=== PATIENT | female | born 1970 | race Caucasian/White ===

== ENCOUNTER 2017-06-22 23:20 | Inpatient (IN) | payer OTHER ==
[2017-06-22 23:37] VITALS: BMI 39.9
[2017-06-23] MEDS ORDERED: SODIUM CHLORIDE 1,000 ML IV SCH (00:30)
--- NOTE | 2017-06-23 00:33 | PDOC ---
History of Present Illness - General Chief Complaint: Headache Stated Complaint: HEADACHE, LT SIDE NUMBNESS Time Seen by Provider: 06/22/17 23:50 History Source: Patient, Family Exam Limitations: No Limitations - History of Present Illness Initial Comments: 06/23/17 00:22 The patient is a 46F with a PMH of HTN and R garcia's palsy who presents to the ED with complaints of a AUGUSTE. The patient is present with her daughter who is translating. The patient states that she's had a headache since 4 pm today. The headache is located in her occiput and radiates towards her frontal portion of her head. The patient also states that she felt like her mouth was shaking and this pain was associated w/ slurred speech. She also states that her R arm hurts. She took an advil and this usually helps her headaches but it did not this time. She rates it a 10/10. She also complains of dizziness when standing. LMP: on her period now Allergies: none Social: does not smoke, drink, or use any recreational drugs. NIH Stroke Scale - Last Known Well Date/Time & Onset Date Last Known Well: 06/23/17 Time Last Known Well: 16:00 - Initial Evaluation Level of consciousness: Alert Ask patient the month and their age: Answers both correctly Ask patient to open & close eyes; make fist and let go: Obeys both correctly Best gaze (horizontal eye movement): Normal Visual field testing: No visual field loss Facial paresis (Show teeth/raise eyebrows/close eyes tight): Normal symmetrical movement Motor Function: Left Arm: Normal Motor Function: Right Arm: Normal (extends arm 90 (or 45) degrees for 10 seconds without drift Motor Function: Left Leg: Normal (extends leg 30 degrees for 5 seconds without drift) Motor Function: Right Leg: Normal (extends leg 30 degrees for 5 seconds without drift) Limb Ataxia: No ataxia Sensory(Use pinprick test arms,legs,trunk,face/side to side): Mild to moderate decrease in sensation Best language (Describe picture, name items, read sentences): No Aphasia Dysarthria (read several words): Normal articulation Extinction and Inattention: No abnormality - Total Score NIH Stroke Scale Score: 1 Past History - Past Medical History Allergies/Adverse Reactions: Allergies Allergy/AdvReac Type Severity Reaction Status Date / Time No Known Allergies Allergy Verified 06/22/17 23:33 Home Medications: Ambulatory Orders Amlodipine Besylate [Norvasc -] 5 mg PO DAILY 06/27/16 Acetaminophen/Caffeine [Excedrin Tension Headache Cplt] 1 each PO Q6H #30 tablet 06/28/16 Anemia: No Asthma: No Cancer: No Cardiac Disorders: No CVA: No COPD: No CHF: No Dementia: No Diabetes: No GI Disorders: No Disorders: No HTN: Yes Hypercholesterolemia: Yes Liver Disease: No Seizures: No - Immunization History Td Vaccination: Yes Immunization Up to Date: Yes - Psycho/Social/Smoking Cessation Hx Anxiety: No Suicidal Ideation: No Smoking Status: No Smoking History: Never smoked Years of Tobacco Use: 0 Have you smoked in the past 12 months: No Number of Cigarettes Smoked Daily: 0 Cigars Per Day: 0 Information on smoking cessation initiated: No Hx Alcohol Use: No Drug/Substance Use Hx: No Substance Use Type: None Hx Substance Use Treatment: No Review of Systems - Review of Systems Able to Perform ROS?: Yes Is the patient limited Bolivian proficient: Yes Constitutional: No: Chills, Fever HEENTM: Yes: Blurred Vision Respiratory: No: Shortness of Breath Cardiac (ROS): No: Chest Pain ABD/GI: No: Nausea, Vomiting Neurological: Yes: Headache, Tingling (in hands). No: Numbness, Weakness *Physical Exam - Vital Signs Last Vital Signs Temp Pulse Resp BP Pulse Ox 98.3 F 74 20 121/61 95 06/22/17 23:33 06/22/17 23:33 06/22/17 23:33 06/22/17 23:33 06/22/17 23:33 - Physical Exam General Appearance: Yes: Nourished, Appropriately Dressed. No: Mild Distress HEENT: positive: REBECCA Respiratory/Chest: positive: Lungs Clear, Normal Breath Sounds. negative: Chest Tender, Respiratory Distress, Accessory Muscle Use, Crackles, Rales, Rhonchi, Stridor Cardiovascular: positive: Regular Rhythm, Regular Rate, S1, S2. negative: Tachycardia, Diastolic Murmur, Systolic Murmur Gastrointestinal/Abdominal: positive: Flat, Soft. negative: Tender, Protuberent , Guarding, Rebound, Tenderness Musculoskeletal: positive: Other (Tenderness over c spine and t spine. No bony step offs or bony abnormalities). negative: CVA Tenderness, CVA Tenderness (R) , CVA Tenderness (L) Integumentary: positive: Dry, Warm. negative: Clammy, Swelling Neurologic: positive: huc II-XII NML intact, Fully Oriented, Alert, Normal Mood/ Affect, Normal Response, Motor Strength 5/5, Sensory Deficit (R sided in upper and lower extremities). negative: Abnormal Cranial NS, Responsive Heart Score/ECG Review - ECG Impressions Normal ECG: Yes ED Treatment Course - LABORATORY CBC & Chemistry Diagram: 06/23/17 00:25 06/23/17 00:25 - RADIOLOGY Radiology Studies Ordered: Category Date Time Status HEAD CT (STROKE) [CT] Stat CT Scan 06/23/17 00:17 Ordered Medical Decision Making - Medical Decision Making 06/23/17 00:37 The patient is a 46F with a PMH of R garcia's palsy and HTN who presents to the ED with sudden onset headache. With the patient's story of slurred speech, I am concerned for a CVA and/or TIA. She had no deficits from her garcia's on my examination. The tenderness to palpation over her c and t-spine is likely musculoskeletal. I have ordered the cva/tia set. 06/23/17 03:28 CT read as negative. 06/23/17 03:30 Labs WNL. 06/23/17 03:34 Paged hospitalist. Awaiting call back. Will admit for TIA and neuro consult. 06/23/17 04:52 Patient signed out to hospitalist team. Admitted to hospitalist. *DC/Admit/Observation/Transfer Diagnosis at time of Disposition: Transient cerebral ischemia Qualifiers: Transient cerebral ischemia type: unspecified Qualified Code(s): G45.9 - Transient cerebral ischemic attack, unspecified - Discharge Dispostion Condition at time of disposition: Stable Admit: Yes - Attestations Physician Attestion: 06/23/17 05:01 I, Dr. Garrett Casas, attest that this document has been prepared under my direction and personally reviewed by me in its entirety. I further attest, that it accurately reflects all work, treatment, procedures and medical decision -making performed by me.
[2017-06-23 00:36] LABS: BASOPHIL 1.3 % (0-2.0); EOSINOPHIL 2.7 % (0-4.5); MCH 28.6 pg (25.7-33.7); MCHC 34.1 g/dl (32.0-36.0); MEAN PLT VOLUME 8.5 fl (7.5-11.1); NEUTROPHILS 55.5 % (42.8-82.8); PLATELET COUNT 261 K/MM3 (134-434); RDW 13.5 % (11.6-15.6); WHITE BLOOD COUNT 7.7 K/mm3 (4.0-10.0)
[2017-06-23 00:43] LABS: URINE APPEARANCE SLCLOUDY; URINE BILIRUBIN NEGATIVE (NEGATIVE); URINE BLOOD 3+ (NEGATIVE); URINE COLOR YELLOW; URINE GLUCOSE (UA) NEGATIVE (NEGATIVE); URINE KETONE NEGATIVE (NEGATIVE); URINE LEUK ESTERASE TRACE (NEGATIVE); URINE NITRITE NEGATIVE (NEGATIVE); URINE UROBILINOGEN NEGATIVE mg/dL (0.2-1.0)
[2017-06-23 00:45] LABS: URINE PROTEIN 2+ (NEGATIVE)
[2017-06-23 00:50] LABS: INR 1.03 (0.82-1.09); PROTHROMBIN TIME (PATIENT) 11.3 SEC (9.98-11.88)
[2017-06-23 00:50] LABS: URINE MUCUS MODERATE; URINE RBC 2534 /hpf (0-3); URINE WBC 17 /hpf (3-5)
[2017-06-23 00:59] LABS: ALBUMIN 3.4 g/dl (3.4-5.0); ANION GAP 9 (8-16); BILIRUBIN,TOTAL 0.4 mg/dL (0.2-1.0); CALCIUM 8.8 mg/dL (8.5-10.1); CHOLESTEROL 213 mg/dL (50-200); CO2 27 mmol/L (21-32); CREATININE 0.7 mg/dL (0.55-1.02); GLUCOSE,RANDOM 123 mg/dL (74-106); SGOT/AST 30 U/L (15-37); SGPT/ALT 45 U/L (12-78)
[2017-06-23 01:02] LABS: ALK PHOS 123 U/L (45-117); CPK 87 IU/L (26-192); TROPONIN I < 0.02 ng/ml (0.00-0.05)
[2017-06-23] MEDS ORDERED: ACETAMINOPHEN 1000 MG/100 ML VIAL (NON FORMULARY) IVPB ONE (01:23)
[2017-06-23 03:17] LABS: LDL CHOLESTEROL (ONLY SJRH) 100 mg/dL (5-100)
--- NOTE | 2017-06-23 03:53 | PDOC ---
Attending Attestation - Resident Resident Name: Garrett Casas - ED Attending Attestation I have performed the following: I have examined & evaluated the patient, The case was reviewed & discussed with the resident, I agree w/resident's findings & plan, Exceptions are as noted - HPI HPI: 06/23/17 02:33 46yo F hx HTN and SLE (not on treatment, has not sought care for it) p/w 10/10 sudden onset headache at 7pm yesterday a/w 1 hour of slurred speech and RUE weakness that resolved after 1 hour. HEadache is not as bad as it was when it started but still present, a/w mild photophobia and mild neck stiffness. Has tried tylenol and motrin for the ochoa with no improvement. 06/23/17 05:03 - Physicial Exam PE: 06/23/17 04:51 GENERAL: Awake, alert, and fully oriented, appears uncomfortable HEAD: No signs of trauma EYES: PERRLA, EOMI, sclera anicteric, conjunctiva clear ENT: Auricles normal inspection, hearing grossly normal, nares patent, oropharynx clear without exudates. Moist mucosa NECK: Normal ROM, supple, no lymphadenopathy, JVD, or masses LUNGS: Breath sounds equal, clear to auscultation bilaterally. No wheezes, and no crackles HEART: Regular rate and rhythm, normal S1 and S2, no murmurs, rubs or gallops ABDOMEN: Soft, nontender, normoactive bowel sounds. No guarding, no rebound. No masses EXTREMITIES: Normal range of motion, no edema. No clubbing or cyanosis. No cords, erythema, or tenderness NEUROLOGICAL: Cranial nerves II through XII grossly intact. negative pronator drift, 5/5 strength in all 4 extremities, normal sensation in all 4 extremities , normal speech - no slurring (daughter confirms), normal gait SKIN: Warm, Dry, normal turgor, no rashes or lesions noted. 06/23/17 05:04 - Medical Decision Making 06/23/17 04:50 46yo F hx HTN and SLE (not on treatment, has not sought care for it) p/w 10/10 sudden onset headache at 7pm yesterday a/w 1 hour of slurred speech and RUE weakness that resolved after 1 hour. Headache is not as bad as it was when it started but still present, a/w mild photophobia and mild neck stiffness. Story concerning for TIA vs SAH. CTH thus far negative for acute blood, however pt requires LP. Pt with large body habitus and thus would require LP under IR guidance. Will admit to medicine for further observation and neuro c/s in the AM. -labs -pain control -admit 06/23/17 05:04
--- NOTE | 2017-06-23 06:49 | HP ---
CHIEF COMPLAINT: PCP: HISTORY OF PRESENT ILLNESS: ER course was notable for: (1) (2) (3) Recent Travel: PAST MEDICAL HISTORY: PAST SURGICAL HISTORY: Social History: Smoking: Alcohol: Drugs: Family History: Allergies No Known Allergies Allergy (Verified 06/22/17 23:33) HOME MEDICATIONS: Home Medications Medication Instructions Recorded Amlodipine Besylate [Norvasc -] 5 mg PO DAILY 06/27/16 Acetaminophen/Caffeine [Excedrin 1 each PO Q6H #30 tablet 06/28/16 Tension Headache Cplt] REVIEW OF SYSTEMS CONSTITUTIONAL: Absent: fever, chills, diaphoresis, generalized weakness, malaise, loss of appetite, weight change HEENT: Absent: rhinorrhea, nasal congestion, throat pain, throat swelling, difficulty swallowing, mouth swelling, ear pain, eye pain, visual changes CARDIOVASCULAR: Absent: chest pain, syncope, palpitations, irregular heart rate, lightheadedness , peripheral edema RESPIRATORY: Absent: cough, shortness of breath, dyspnea with exertion, orthopnea, wheezing, stridor, hemoptysis GASTROINTESTINAL: Absent: abdominal pain, abdominal distension, nausea, vomiting, diarrhea, constipation, melena, hematochezia GENITOURINARY: Absent: dysuria, frequency, urgency, hesitancy, hematuria, flank pain, genital pain MUSCULOSKELETAL: Absent: myalgia, arthralgia, joint swelling, back pain, neck pain SKIN: Absent: rash, itching, pallor HEMATOLOGIC/IMMUNOLOGIC: Absent: easy bleeding, easy bruising, lymphadenopathy, frequent infections ENDOCRINE: Absent: unexplained weight gain, unexplained weight loss, heat intolerance, cold intolerance NEUROLOGIC: Absent: headache, focal weakness or paresthesias, dizziness, unsteady gait, seizure, mental status changes, bladder or bowel incontinence PSYCHIATRIC: Absent: anxiety, depression, suicidal or homicidal ideation, hallucinations. PHYSICAL EXAMINATION Vital Signs - 24 hr 06/23/17 06/23/17 05:12 05:30 Temperature 97.5 F L Pulse Rate [ 68 Left Radial] Respiratory 20 Rate Blood Pressure 112/67 [Left Arm] O2 Sat by Pulse 98 98 Oximetry (%) GENERAL: Awake, alert, and fully oriented, in no acute distress. HEAD: Normal with no signs of trauma. EYES: Pupils equal, round and reactive to light, extraocular movements intact, sclera anicteric, conjunctiva clear. No lid lag. EARS, NOSE, THROAT: Ears normal, nares patent, oropharynx clear without exudates. Moist mucous membranes. NECK: Normal range of motion, supple without lymphadenopathy, JVD, or masses. LUNGS: Breath sounds equal, clear to auscultation bilaterally. No wheezes, and no crackles. No accessory muscle use. HEART: Regular rate and rhythm, normal S1 and S2 without murmur, rub or gallop. ABDOMEN: Soft, nontender, not distended, normoactive bowel sounds, no guarding, no rebound, no masses. No hepatomegaly or splenomegaly. MUSCULOSKELETAL: Normal range of motion at all joints. No bony deformities or tenderness. No CVA tenderness. UPPER EXTREMITIES: 2+ pulses, warm, well-perfused. No cyanosis. No clubbing. No peripheral edema. LOWER EXTREMITIES: 2+ pulses, warm, well-perfused. No calf tenderness. No peripheral edema. NEUROLOGICAL: Cranial nerves II-XII intact. Normal speech. Normal gait. PSYCHIATRIC: Cooperative. Good eye contact. Appropriate mood and affect. SKIN: Warm, dry, normal turgor, no rashes or lesions noted, normal capillary refill. ASSESSMENT/PLAN:
--- NOTE | 2017-06-23 06:52 | HP ---
CHIEF COMPLAINT: Headache, slurred speech, right arm numbness PCP: Maryanne Franco HISTORY OF PRESENT ILLNESS: 46 y.o. F with PMH of HTN, Lupus, and R garcia's palsy presenting with right upper extremity numbness, slurred speech and headache with back pain that began at 4 pm. Patient's symptoms began suddenly. Headache was 10/10, midfrontal radiating to occiput, pressure like pain. Patient tried tylenol, motrin, and advil with no relief. Slurred speech resolved within 1 hour. RUE numbness lasted until she was in the ED and then resolved. Patient also has neck/back discomfort and pain. Patient denies any fever, chills, N/V, weakness, neck stiffness, photophobia ER course was notable for: (1) Labs- Abnormal lipid panel (2) UA- 3+ blood (3) Head ct- negative Recent Travel: denies PAST MEDICAL HISTORY: as stated above PAST SURGICAL HISTORY: denies Social History: Smoking: denies Alcohol: denies Drugs: denies Family History: negative Allergies No Known Allergies Allergy (Verified 06/22/17 23:33) HOME MEDICATIONS: Home Medications Medication Instructions Recorded Amlodipine Besylate [Norvasc -] 5 mg PO DAILY 06/27/16 Acetaminophen/Caffeine [Excedrin 1 each PO Q6H #30 tablet 06/28/16 Tension Headache Cplt] REVIEW OF SYSTEMS CONSTITUTIONAL: Absent: fever, chills, diaphoresis, generalized weakness, malaise, loss of appetite, weight change HEENT: Absent: rhinorrhea, nasal congestion, throat pain, throat swelling, difficulty swallowing, mouth swelling, ear pain, eye pain, blurry vision CARDIOVASCULAR: Absent: chest pain, syncope, palpitations, irregular heart rate, lightheadedness , peripheral edema RESPIRATORY: Absent: cough, shortness of breath, dyspnea with exertion, orthopnea, wheezing, stridor, hemoptysis GASTROINTESTINAL: Absent: abdominal pain, abdominal distension, nausea, vomiting, diarrhea, constipation, melena, hematochezia GENITOURINARY: Absent: dysuria, frequency, urgency, hesitancy, hematuria, flank pain, genital pain MUSCULOSKELETAL: Absent: myalgia, arthralgia, joint swelling, back pain, neck pain SKIN: Absent: rash, itching, pallor HEMATOLOGIC/IMMUNOLOGIC: Absent: easy bleeding, easy bruising, lymphadenopathy, frequent infections ENDOCRINE: Absent: unexplained weight gain, unexplained weight loss, heat intolerance, cold intolerance NEUROLOGIC: Absent: headache, focal weakness or paresthesias, dizziness, unsteady gait, seizure, mental status changes, bladder or bowel incontinence PSYCHIATRIC: Absent: anxiety, depression, suicidal or homicidal ideation, hallucinations. PHYSICAL EXAMINATION Vital Signs - 24 hr 06/23/17 06/23/17 05:12 05:30 Temperature 97.5 F L Pulse Rate [ 68 Left Radial] Respiratory 20 Rate Blood Pressure 112/67 [Left Arm] O2 Sat by Pulse 98 98 Oximetry (%) GENERAL: Awake, alert, and fully oriented, in no acute distress. Obese, No slurred speech HEAD: Normal with no signs of trauma. EYES: Pupils equal, round and reactive to light, extraocular movements intact, sclera anicteric, conjunctiva clear. No lid lag. EARS, NOSE, THROAT: Oropharynx clear without exudates. Moist mucous membranes. NECK: Normal range of motion, supple without lymphadenopathy, JVD, or masses. LUNGS: Breath sounds equal, clear to auscultation bilaterally. No wheezes, and no crackles. No accessory muscle use. HEART: Regular rate and rhythm, normal S1 and S2 without murmur, rub or gallop. ABDOMEN: Soft, nontender, not distended, normoactive bowel sounds, no guarding, no rebound, no masses. No hepatomegaly or splenomegaly. MUSCULOSKELETAL: Normal range of motion at all joints. No bony deformities or tenderness. No CVA tenderness. UPPER EXTREMITIES: 2+ pulses, warm, well-perfused. No cyanosis. No clubbing. No peripheral edema. LOWER EXTREMITIES: 2+ pulses, warm, well-perfused. No calf tenderness. No peripheral edema. NEUROLOGICAL: Cranial nerves II-XII intact. 5/5 strength b/l, sensation intact , reflexes 2+ b/l, negative babinski, Normal speech. PSYCHIATRIC: Cooperative. Good eye contact. Appropriate mood and affect. SKIN: Warm, dry, normal turgor, no rashes or lesions noted, normal capillary refill. ekg- NSR Head ct- negative ASSESSMENT/PLAN: 46 y.o. F with PMH of HTN, Lupus, and R garcia's palsy presenting with right upper extremity numbness, slurred speech and headache admitted for TIA vs cervical radiculopathy. #TIA vs Cervical Radiculopathy -Admit to telemetry -Head ct negative -EKG wnl -Aspirin 162mg given -Continue asa 81 mg po daily -TTE pending -Will repeat Head ct in 24 hrs -Cervical X ray pending -Speech/swallow -PT pending -Neurology consulted, Dr. Siddiqi -Tylenol 650 mg po prn q4h for headaches -Neuro checks q4 hours #HTN -Continue home amlodipine 5 mg po daily #Hx of lupus -Not on any medication -Can f/u with pcp outpt #DVT ppx -Heparin 5000 units sq bid Visit type - Emergency Visit Emergency Visit: Yes ED Registration Date: 06/23/17 Care time: The patient presented to the Emergency Department on the above date and was hospitalized for further evaluation of their emergent condition. - New Patient This patient is new to me today: Yes Date on this admission: 06/23/17 - Critical Care Critical Care patient: No
--- NOTE | 2017-06-23 06:57 | PN ---
Teaching Attending Note Name of Resident: Mg Stewart ATTENDING PHYSICIAN STATEMENT I saw and evaluated the patient. I reviewed the chart, data, and imaging. I reviewed the resident's note and discussed the case with the resident. I agree with the resident's findings and plan as documented with modifications below. SUBJECTIVE: 46yo F w/ history of HTN and SLE c/o right upper extremity paresthesias and occipital headache which started 8/5 at about 4 pm. Symptoms started suddenly, not related to trauma. RUE paresthesias lasted for a few hours and resolved spontaneously. Headache decreased in intensity but still present. Pt also c/o some discomfort in neck. No nausea or vomiting, fevers, photophobia, or neck stiffness. Head CT negative for any acute insults. OBJECTIVE: Last Vital Signs Temp Pulse Resp BP Pulse Ox 97.5 F L 68 20 112/67 98 06/23/17 05:30 06/23/17 05:30 06/23/17 05:30 06/23/17 05:30 06/23/17 05:30 General- obese, not in acute distress, speaks in full sentences, aaox3 HEENT- no scleral pallor no sinus tenderness Neck supple, no masses appreciated CV s1+S2+ RRR, no murmurs Chest- CTA b/l Abdomen soft, nt, bs+, obese Skin- no rashes appreciated Neuro no focal motor deficits appreciated, no hyperreflexia appreciated, negative Babinski b/l, CN 3-12 intact Abnormal Lab Results 06/23/17 06/23/17 00:25 00:32 Random Glucose 123 H D Alkaline Phosphatase 123 H D Triglycerides 505 H Cholesterol 213 H HDL Cholesterol 35 L Urine Protein 2+ H Urine Blood 3+ H EKG -normal sinus rhythm Head CT - no acute insults ASSESSMENT AND PLAN: TIA vs cervical radiculopathy. Neuro exam is currently normal and no deficits appreciated. -admit to telemetry -aspirin 182mg stat and daily -neurocheck q4hrs -b/l carotid duplex U/S -transthoracic echo -Repeat head CT in 24 hours -Speech and swallow evaluation -Rehab evaluation -Neurology consult -Xray of cervical spine to evaluate for DJD -tylenol PRN for headache
[2017-06-23] MEDS ORDERED: ASPIRIN 81 MG CHEWABLE TABLETS PO ONE (07:09)
[2017-06-23] MEDS ORDERED: ASPIRIN 81 MG CHEWABLE TABLETS ONE ×2 (07:40→10:29)
--- NOTE | 2017-06-23 10:05 | PN ---
Physical Exam: SUBJECTIVE: Patient seen and examined The patient is a 46 year old female with a significant past medical history of HTN, Lupus, and R garcia's palsy who was admitted to inpatient services after she presented with right upper extremity paresthesias, slurred speech and headache, concerning for TIA/CVA vs cervical radiculopathy. She is currently asymptomatic OBJECTIVE: Vital Signs Period Temp Pulse Resp BP Sys/Alvarado Pulse Ox Last 24 Hr 97.5 F 68 20 112/67 98-98 GENERAL: Awake, alert HEART: S1S2, RRR LUNGS: Coarse breath sounds bilaterally ABDOMEN: Soft, non-distended, normal BS EXTREMITIES: no edema NEURO: Active Medications Generic Name Dose Route Start Last Admin Trade Name Freq PRN Reason Stop Dose Admin Acetaminophen 650 mg 06/23/17 08:52 Tylenol - PO Q4H PRN HEADACHE Amlodipine Besylate 5 mg 06/23/17 10:00 Norvasc - PO DAILY NANETTE Aspirin 81 mg 06/23/17 10:00 Asa - PO DAILY NANETTE Heparin Sodium (Porcine) 5,000 unit 06/23/17 10:00 Heparin - SQ BID NANETTE Sodium Chloride 1,000 mls @ 42 mls/hr 06/23/17 00:30 06/23/17 01:21 Normal Saline - IV 42 mls/hr ASD[facility] Administration ASSESSMENT/PLAN: #NEURO TIA/CVA vs Cervical Radiculopathy Head CT was negative She was not a candidate for TPA Continue Tele Continue asa 81 mg po daily Carotid dopplers noted without significant findings Cervical X ray noted with evidence of OA TTE pending Repeat Head CT (24hr) was ordered Speech/swallow and PT pending Neurology consulted, Dr. Siddiqi Neuro checks q4 hours #CARDIOVASCULAR Chronic HTN Hyperlipidemia noted on lipid panel Continue home amlodipine 5 mg po daily Begin Lipitor #RHEUM Chronic Lupus Not on any medication Can f/u with pcp outpt #FEN Na controlled diet D51/2NS at 125ml for maintenance #PROPHYLAXIS -Heparin 5000 units sq bid Eating #DISPOSITION Pending repeat Head CT Visit type - Emergency Visit Emergency Visit: Yes ED Registration Date: 06/23/17 Care time: The patient presented to the Emergency Department on the above date and was hospitalized for further evaluation of their emergent condition. - New Patient This patient is new to me today: Yes Date on this admission: 06/23/17 - Critical Care Critical Care patient: No
[2017-06-23] MEDS ORDERED: DEXTROSE 5%-0.45% SALINE 1,000 ML IV SCH (10:15)
[2017-06-23] MEDS ORDERED: amLODIPine BESYLATE 5 MG TABLET (FP) ONE (10:29)
[2017-06-23] MEDS: HEPARIN NA (PORCINE) 5,000 UNITS/ML 1ML VIAL SQ SCH ×2 (10:30→21:11)
[2017-06-23] MEDS: amLODIPine BESYLATE 5 MG TABLET (FP) PO SCH (10:30)
[2017-06-23] MEDS ORDERED: HEPARIN NA (PORCINE) 5,000 UNITS/ML 1ML VIAL ONE (10:30)
[2017-06-23] MEDS: ASPIRIN 81 MG CHEWABLE TABLETS PO SCH (10:30)
--- NOTE | 2017-06-23 16:24 | CON.NEURO ---
Consult - History of Present Illness History of Present Illness: right sided numbness, headhace , dizziness and slurred of speech one day 46 year old female history of htn , lupus , bells palsy ( resolved ) . Patient currently not working and denies any cad or smoking. She had severe headhace and came to hospital as she felt dizziness and also felt slurred of speech and dizziness. ct head was normal. mri not done. Patinet is started on apsirin and statin - Past Medical History Cardio/Vascular: Yes: HTN ...LMP: 06/23/17 Endocrine: Yes: Diabetes Mellitus (Pre-diabetes) - Alcohol/Substance Use Hx Alcohol Use: No - Smoking History Smoking history: Never smoked Have you smoked in the past 12 months: No Aproximately how many cigarettes per day: 0 - Social History ADL: Independent History of Recent Travel: No Home Medications - Allergies Allergies/Adverse Reactions: Allergies Allergy/AdvReac Type Severity Reaction Status Date / Time No Known Allergies Allergy Verified 06/22/17 23:33 - Home Medications Home Medications: Ambulatory Orders Amlodipine Besylate [Norvasc -] 5 mg PO DAILY 06/27/16 Acetaminophen/Caffeine [Excedrin Tension Headache Cplt] 1 each PO Q6H #30 tablet 06/28/16 Family Disease History - Family Disease History Family Disease History: Other: Father (paralysis), Daughter (seizure) Physical Exam-Neuro Vital Signs: Vital Signs Temperature 97.5 F L 06/23/17 05:30 Pulse Rate 56 L 06/23/17 13:30 Respiratory Rate 20 06/23/17 05:30 Blood Pressure 144/82 06/23/17 13:30 O2 Sat by Pulse Oximetry (%) 100 06/23/17 14:41 Labs: INR, PTT INR 1.03 (0.82-1.09) 06/23/17 00:25 NIH Stroke Scale - Total Score NIH Stroke Scale Score: 0 Imaging - Results Cat Scan: Report Reviewed Ultrasound: Report Reviewed Assessment/Plan cc right sided numbness, headhace , dizziness and slurred of speech one day 46 year old female history of htn , lupus , bells palsy ( resolved ) . Patient currently not working and denies any cad or smoking. She had severe headhace and came to hospital as she felt dizziness and also felt slurred of speech and dizziness. ct head was normal. mri not done. Patinet is started on apsirin and statin PMH, SH,ROS,ALLERGIES reviewed in chart HOME MEDICATIONS: Home Medications Medication Instructions Recorded Amlodipine Besylate [Norvasc -] 5 mg PO DAILY 06/27/16 Acetaminophen/Caffeine [Excedrin 1 each PO Q6H #30 tablet 06/28/16 Tension Headache Cplt] Neurological Examination Alert oriented x 3, follow command, no speech difficulty eomi, no face asymmetry, pupils are reactive, no sensory loss on face motor strength is normal in both upper and lower extremity ct head and carotid ultrasound reviewed Assessment-- probable TIA , risk factor is hypertension. Patient may have a episode of migraine, unlikely to be radiculopathy as there is no no neck pain or any motor weakness, Plan-- suggest to do mri of brain continue aspirin and statin carotid ultraosund and ct head is unremarkable pt, dvt prophylaxis, and speech thank you so much Alan Siddiqi MD Neurology Attending
[2017-06-23] MEDS: ACETAMINOPHEN 325 MG TABLET (FP) PO PRN ×2 (17:50→22:01)
[2017-06-23] MEDS: ATORVASTATIN CA 40 MG TABLET (FP) PO SCH (21:11)
--- NOTE | 2017-06-24 03:49 | HOSP ---
Subjective - Review of Symptoms Subjective: LATE ENTRY Paged about infilitrated R AC fossa IV line around 20:00h. On evaluation nursing staff had regained access on L AC fossa and applied warm compress to area of infilitration on R upper extremity. Pt reports increased edema in the area WITHOUT pain. Pt is not on any anticoagulation at this time. Physical Examination Vital Signs: Vital Signs Temperature 97.9 F 06/24/17 01:00 Pulse Rate 57 L 06/24/17 01:00 Respiratory Rate 20 06/24/17 01:00 Blood Pressure 105/51 06/24/17 01:00 O2 Sat by Pulse Oximetry (%) 98 06/23/17 21:00 Findings/Remarks: Pt resting comfortably at bedside R AC fossa edematous and erythematous. Warmth could not be assessed due to warm compress being applied to area already. R radial pulse strong and equal to L radial Strength 5/5 in R upper extremity Hospitalist Encounter Assessment: R AC fossa IV line infilitration --Risk management form completed and left with nursing staff --Continue warm compress to help mobilize fluids --Monitor for any skin changes or continued edema or continued warmth in R AC fossa
[2017-06-24] MEDS: ACETAMINOPHEN 325 MG TABLET (FP) PO PRN ×2 (05:17→14:46)
[2017-06-24 07:14] LABS: EOSINOPHIL 3.8 % (0-4.5); MCH 28.8 pg (25.7-33.7); MCHC 34.1 g/dl (32.0-36.0); MEAN CELL VOLUME 84.7 fl (80-96); MEAN PLT VOLUME 8.5 fl (7.5-11.1); PLATELET COUNT 243 K/MM3 (134-434); RDW 13.5 % (11.6-15.6); WHITE BLOOD COUNT 5.6 K/mm3 (4.0-10.0)
[2017-06-24 07:41] LABS: ALBUMIN 3.1 g/dl (3.4-5.0); ANION GAP 5 (8-16); CALCIUM 8.2 mg/dL (8.5-10.1); CO2 27 mmol/L (21-32); GLUCOSE,RANDOM 112 mg/dL (74-106); MAGNESIUM 2.1 mg/dL (1.8-2.4); SGOT/AST 30 U/L (15-37)
[2017-06-24 07:53] LABS: ALK PHOS 101 U/L (45-117); BILIRUBIN,TOTAL 0.4 mg/dL (0.2-1.0); CREATININE 0.6 mg/dL (0.55-1.02); PHOSPHOROUS 3.9 mg/dL (2.5-4.9); SGPT/ALT 42 U/L (12-78); THYROID STIMULATING HORMONE 2.84 uIU/ml (0.358-3.74); TOT PROT 6.5 g/dl (6.4-8.2)
[2017-06-24] MEDS: HEPARIN NA (PORCINE) 5,000 UNITS/ML 1ML VIAL SQ SCH ×2 (09:59→22:00)
[2017-06-24] MEDS: ASPIRIN 81 MG CHEWABLE TABLETS PO SCH (09:59)
[2017-06-24] MEDS: amLODIPine BESYLATE 5 MG TABLET (FP) PO SCH (09:59)
--- NOTE | 2017-06-24 10:49 | CONSULT ---
Admitting History and Physical - Primary Care Physician PCP: Calderon Durand - Admission History of Present Illness: Per EMR:"The patient is a 46 year old female with a significant past medical history of HTN, Lupus, and R garcia's palsy who was admitted to inpatient services after she presented with right upper extremity paresthesias, slurred speech and headache, concerning for TIA/CVA vs cervical radiculopathy." Per Neurology:" probable TIA , risk factor is hypertension." Pending MRI. History Source: Patient, Medical Record Limitations to Obtaining History: No Limitations - Past Medical History Cardiovascular: Yes: HTN ...LMP: 06/23/17 Endocrine: Yes: Diabetes Mellitus (Pre-diabetes) - Smoking History Smoking history: Never smoked Have you smoked in the past 12 months: No Aproximately how many cigarettes per day: 0 - Alcohol/Substance Use Hx Alcohol Use: No - Social History ADL: Independent History of Recent Travel: No History - Admission Reason For Visit: TRANSIENT CEREBRAL ISCHEMIA - Diagnostics X-ray: Report Reviewed CT Scan: Report Reviewed MRI: Pending - General Mental Status: Alert and Oriented, Awake and Alert, Able to Follow Commands Attention: Intact Ability to Follow Directions: Good Head/Neck Control: WFL - Hearing Hearing: Normal Speech Evaluation - Communication Primary Language: VINCENTIAN Communication: Yes: Within Normal Limits Oral Expression Ability: Yes: No Impairment - Speech Production Able to Make Needs Known: Yes: WNL Intelligibility: Yes: WNL - Speech Characteristics Voice Loudness: Normal Voice Pitch: Yes: Normal Voice Phonatory-based Quality: Yes: Normal Speech Pattern: Normal Speech Clarity: < 100% Nasal Resonance: Normal Articulation: Yes: Precise Rate of Speech: Intact - Language/Verbal Expression Able to Respond to Simple Queries: Yes: WNL Able to Communicate Wants and Needs: Yes: WNL Functional Communication Status: Yes: WNL - Memory/Perception group home Memory: Yes: WNL Short Term Memory: Yes: WNL - Swallow Evaluation/Bedside Assessment Current Nutritional Intake: Regular, Thin Liquids Oral Secretions: Yes: WFL Dentition: Yes: Adequate Facial Symmetry at Rest: Symmetrical Facial Symmetry on Retraction: Symmetrical Facial Movement: Controlled Sensation: Normal Against Resistance Opening: Normal Against Resistance Closing: Normal Pucker Lips: Normal Smile: Normal Lingual Movement: Normal, Symmetric Lingual Speed of Movement: Normal Lingual Movement Strgth Against Opposition: Normal Lingual Movement Characteristics: Normal Laryngeal Elevation: WFL Laryngeal Movement: Able to Palpate Rate of Intake: WFL Bolus Size: WFL Labial Seal: WFL Chewing: WFL Oral Prep Time: WFL A-P Transit: WFL Pocketing: None Timing of Swallow: WFL Coughing/Throat Clear: No Change in Voice: No Recommendations - Speech Evaluation, Impression/Plan Impression: Speech,language, swallowing, cognition judged to be WNL. - Dysphagia Impressions/Plan Swallowing Skills: WFL Dysphagia Impressions: No Impairment *Silent aspiration: cannot be R/O at bedside - Recommendations Diet Consistency: Regular Medication Administration: Whole with water Liquids: Thin Liquids
--- NOTE | 2017-06-24 11:14 | PN ---
Teaching Attending Note Name of Resident: Mg Stewart ATTENDING PHYSICIAN STATEMENT I saw and evaluated the patient. I reviewed the resident's note and discussed the case with the resident. I agree with the resident's findings and plan as documented. SUBJECTIVE: No complaints Headache resolved SHe says that she has had similar paresthesias in the past with headaches OBJECTIVE: Vitals noted No focal neurological deficits ASSESSMENT AND PLAN: Likely resolved migraine with neurological features MRI and TTE today Anticipate discharge later today pending results See resident note for full details
--- NOTE | 2017-06-24 13:42 | EKG ---
Test Reason : Blood Pressure : / mmHG Vent. Rate : 067 BPM Atrial Rate : 067 BPM P-R Int : 146 ms QRS Dur : 082 ms QT Int : 406 ms P-R-T Axes : 034 -18 -09 degrees QTc Int : 429 ms NORMAL SINUS RHYTHM NORMAL ECG WHEN COMPARED WITH ECG OF 28-JUN-2016 03:53, NO SIGNIFICANT CHANGE WAS FOUND Confirmed by LESVIA ROSSI MD ([id number]) on 06/24/2017 1:42:08 PM Referred By: Confirmed By:LESVIA ROSSI MD
--- NOTE | 2017-06-24 17:33 | PN ---
Physical Exam: SUBJECTIVE: Patient seen and examined No acute events overnight. Patient feels much better today. Patient has had headaches with numbness in the past. OBJECTIVE: Vital Signs Period Temp Pulse Resp BP Sys/Alvarado Pulse Ox Last 24 Hr 97.7 F-98.3 F 55-72 18-20 105-128/51-78 95-98 GENERAL: Awake, alert, and fully oriented, in no acute distress. Obese HEAD: Normal with no signs of trauma. EYES: Pupils equal, round and reactive to light, extraocular movements intact, sclera anicteric, conjunctiva clear. No lid lag. EARS, NOSE, THROAT: Oropharynx clear without exudates. Moist mucous membranes. NECK: Normal range of motion, supple without lymphadenopathy, JVD, or masses. LUNGS: Breath sounds equal, clear to auscultation bilaterally. No wheezes, and no crackles. No accessory muscle use. HEART: Regular rate and rhythm, normal S1 and S2 without murmur, rub or gallop. ABDOMEN: Soft, nontender, not distended, normoactive bowel sounds, no guarding, no rebound, no masses. No hepatomegaly or splenomegaly. MUSCULOSKELETAL: Normal range of motion at all joints. No bony deformities or tenderness. No CVA tenderness. UPPER EXTREMITIES: 2+ pulses, warm, well-perfused. No cyanosis. No clubbing. No peripheral edema. LOWER EXTREMITIES: 2+ pulses, warm, well-perfused. No calf tenderness. No peripheral edema. NEUROLOGICAL: Cranial nerves II-XII intact. 5/5 strength b/l, sensation intact , reflexes 2+ b/l, negative babinski, Normal speech. PSYCHIATRIC: Cooperative. Good eye contact. Appropriate mood and affect. SKIN: Warm, dry, normal turgor, no rashes or lesions noted, normal capillary refill. Laboratory Results - last 24 hr 06/24/17 06/24/17 06:30 06:30 WBC 5.6 RBC 4.32 Hgb 12.5 Hct 36.6 MCV 84.7 MCH 28.8 MCHC 34.1 RDW 13.5 Plt Count 243 MPV 8.5 Neutrophils % 42.0 L D Lymphocytes % 47.0 H D Monocytes % 6.2 Eosinophils % 3.8 Basophils % 1.0 Sodium 138 Potassium 4.0 Chloride 106 Carbon Dioxide 27 Anion Gap 5 L BUN 11 D Creatinine 0.6 Creat Clearance w eGFR > 60 Random Glucose 112 H Calcium 8.2 L Phosphorus 3.9 Magnesium 2.1 Total Bilirubin 0.4 AST 30 ALT 42 Alkaline Phosphatase 101 Total Protein 6.5 Albumin 3.1 L TSH 2.84 D Active Medications Generic Name Dose Route Start Last Admin Trade Name Freq PRN Reason Stop Dose Admin Acetaminophen 650 mg 06/23/17 08:52 06/24/17 14:46 Tylenol - PO 650 mg Q4H PRN Administration HEADACHE Amlodipine Besylate 5 mg 06/23/17 10:00 06/24/17 09:59 Norvasc - PO 5 mg DAILY NANETTE Administration Aspirin 81 mg 06/23/17 10:00 06/24/17 09:59 Asa - PO 81 mg DAILY NANETTE Administration Atorvastatin Calcium 40 mg 06/23/17 22:00 06/23/17 21:11 Lipitor - PO 40 mg HS NANETTE Administration Heparin Sodium (Porcine) 5,000 unit 06/23/17 10:00 06/24/17 09:59 Heparin - SQ 5,000 unit BID NANETTE Administration ASSESSMENT/PLAN: 46 y.o. F with PMH of HTN, Lupus, and R garcia's palsy presenting with right upper extremity numbness, slurred speech and headache admitted for TIA vs cervical radiculopathy. #TIA vs Cervical Radiculopathy -Head ct negative -EKG wnl -Continue asa 81 mg po daily -Brain MRI- negative -Speech/swallow revealed no impairment -PT evaluation reviewed -Neurology consulted, Dr. Siddiqi -Tylenol 650 mg po prn q4h for headaches -Neuro checks q4 hours -patient was set to be d/c but echocardiogram report still pending #HTN -Continue home amlodipine 5 mg po daily #Hx of lupus -Not on any medication -Can f/u with pcp outpt #DVT ppx -Heparin 5000 units sq bid dispo: D/c in [place] following echocardiogram report. Visit type - Emergency Visit Emergency Visit: No - New Patient This patient is new to me today: No - Critical Care Critical Care patient: No
[2017-06-24] MEDS: ATORVASTATIN CA 40 MG TABLET (FP) PO SCH (22:00)
[2017-06-25 07:37] LABS: EOSINOPHIL 3.6 % (0-4.5); MCH 29.4 pg (25.7-33.7); MCHC 34.6 g/dl (32.0-36.0); MEAN PLT VOLUME 8.4 fl (7.5-11.1); NEUTROPHILS 48.4 % (42.8-82.8); PLATELET COUNT 253 K/MM3 (134-434); RDW 13.1 % (11.6-15.6); WHITE BLOOD COUNT 7.3 K/mm3 (4.0-10.0)
[2017-06-25 07:56] LABS: ANION GAP 9 (8-16); CALCIUM 8.6 mg/dL (8.5-10.1); CO2 28 mmol/L (21-32); CREATININE 0.5 mg/dL (0.55-1.02); GLUCOSE,RANDOM 98 mg/dL (74-106)
[2017-06-25] MEDS: amLODIPine BESYLATE 5 MG TABLET (FP) PO SCH (10:38)
[2017-06-25] MEDS: HEPARIN NA (PORCINE) 5,000 UNITS/ML 1ML VIAL SQ SCH (10:38)
[2017-06-25] MEDS: ASPIRIN 81 MG CHEWABLE TABLETS PO SCH (10:39)
[2017-06-25 11:36] VITALS: BP 117/52; PULSE 63; TEMP 97.7
--- NOTE | 2017-06-25 15:29 | DS ---
Physical Exam: LABS Laboratory Results - last 24 hr Selected Entries 06/22/17 06/24/17 06/24/17 23:33 06:00 09:00 Temperature 98.3 F 98.2 F Pulse Rate 74 55 L Blood Pressure 121/61 109/56 O2 Sat by Pulse Oximetry (%) Oxygen Delivery Method 06/24/17 06/25/17 06/25/17 20:28 02:00 09:00 Temperature Pulse Rate 73 Blood Pressure 121/59 O2 Sat by Pulse 96 Oximetry (%) Oxygen Delivery Room Air Method 06/25/17 10:00 Temperature 97.7 F Pulse Rate 63 Blood Pressure 117/52 O2 Sat by Pulse Oximetry (%) Oxygen Delivery Method Laboratory Tests 06/23/17 06/23/17 06/23/17 00:25 00:25 00:32 WBC 7.7 Sodium 139 Potassium 3.6 Random Glucose 123 H D Triglycerides 505 H Cholesterol 213 H Total LDL Cholesterol 100 HDL Cholesterol 35 L TSH Urine Blood 3+ H Urine RBC 2534 Ur Epithelial Cells Rare Urine Mucus Moderate 06/24/17 06/24/17 06/25/17 06:30 06:30 06:40 WBC 5.6 7.3 D Sodium 138 Potassium 4.0 Random Glucose 112 H Triglycerides Cholesterol Total LDL Cholesterol HDL Cholesterol TSH 2.84 D Urine Blood Urine RBC Ur Epithelial Cells Urine Mucus 06/25/17 06:40 WBC Sodium 140 Potassium 4.1 Random Glucose 98 Triglycerides Cholesterol Total LDL Cholesterol HDL Cholesterol TSH Urine Blood Urine RBC Ur Epithelial Cells Urine Mucus 06/23- Head CT: No CT evidence of acute intracranial pathology or acute territorial infarction. 06/23- Cervical Spine X Ray- Stable arthritic changes similar to that seen on 06/27. 06/23- Brain MRI - No evidence of edema, acute ischemia changes, hemorrhage, or demyelinating process. 06/23- Carotid doppler-There is very minimal intimal thickening at the common carotid bifurcation, bilaterally without evidence of hemodynamically significant stenosis 06/23- EKG- NSR, Normal EKG 06/25- Echo: EF 65.8%, LV systolic fxn is normal, LV size is normal, trace MR, mild TR, trace pulm regurg HOSPITAL COURSE: Date of Admission:06/23/17 Date of Discharge: 06/25/17 46 y.o. F with PMH of HTN, Lupus, and R garcia's palsy presented with right upper extremity numbness, slurred speech and headache. Patient's symptoms began suddenly. Headache was 10/10, midfrontal radiating to occiput, pressure like pain. Patient tried tylenol, motrin, and advil with no relief. Slurred speech resolved within 1 hour. RUE numbness lasted until she was in the ED and then resolved. ER course was notable for abnormal lipid panel and head ct that was negative. Patient was admitted to telemetry for possible TIA. Full stroke workup was done. Patient was started on aspirin 81 mg po daily. Echo was unremarkable ( results above). Patient underwent speech/swallow and physical therapy, which were all unremarkable. Patient was discharged home and told to follow up with her primary care provider within 1 week. She stated her understanding. Minutes to complete discharge: 40 Discharge Summary Reason For Visit: TRANSIENT CEREBRAL ISCHEMIA Current Active Problems Left arm numbness (Acute) TIA (transient ischemic attack) (Acute) HTN (hypertension) (Chronic) Headache (Chronic) Lupus (systemic lupus erythematosus) (Chronic) Condition: Improved - Instructions Diet, Activity, Other Instructions: You were in the hospital due to headache, right arm numbness, and slurred speech. Please follow up with your primary care provider within 1 week. Continue the following medication. -Excedrin 1 tablet every 6 hours as needed -Norvasc 5 mg by mouth daily Start the following medication: -Lipitor 40 mg by mouth at night -Aspirin 81 mg by mouth daily If you have any chest pain, shortness of breath, or any new symptoms please come back to the hospital immediately. Referrals: Maryanne Hoffman MD [Primary Care Provider] - Disposition: HOME - Home Medications Comprehensive Discharge Medication List: Ambulatory Orders Acetaminophen/Caffeine [Excedrin Tension Headache Cplt] 1 each PO Q6H #30 tablet 06/28/16 Aspirin [ASA -] 81 mg PO DAILY tab.chew 06/24/17 Atorvastatin Ca [Lipitor] 40 mg PO HS #30 tablet 06/24/17 Amlodipine Besylate [Norvasc -] 5 mg PO DAILY #30 tablet 06/25/17 This patient is new to me today: No Emergency Visit: No Critical Care patient: No - Discharge Referral Referred to [facility] No
--- NOTE | 2017-06-25 15:29 | PN ---
Teaching Attending Note Name of Resident: Mg Stewart ATTENDING PHYSICIAN STATEMENT I saw and evaluated the patient. I reviewed the resident's note and discussed the case with the resident. I agree with the resident's findings and plan as documented. SUBJECTIVE:currently asymptomatic. denies Cp, SOB,fever, chills, pain, states has not had repeated episode of arm numbness. OBJECTIVE: Last Vital Signs Temp Pulse Resp BP Pulse Ox 97.7 F 63 18 117/52 96 06/25/17 10:06/25/17 10:06/25/17 10:06/25/17 10:06/25/17 09:00 General NAD CV S1 S2 RRR no murmur/rub/gallop Neuro CN II-XII grossly intact. sensation and strength equal in all 4 extremities ASSESSMENT AND PLAN: 46yo F w/ history of HTN and SLE c/o right upper extremity paresthesias and occipital headache 1. RUE parathesia- likely TIA. symptoms resolved several hours of presentation from the hospital. stroke workup completed and all imaging studies negative. MRI /carotid doppler/Echo normal. on asa/statin. continue. can follow up with neurology if symptoms return 2. HTN- controlled. cont norvasc 3. d/c home
== END 2017-06-25 15:40 | disposition home or self-care (01) | DRG 47 ==
LOC: JER 23:20 → JERBED 06-23 05:01 → J4S 06-23 17:16
PROVIDERS: ADMIT Internal Medicine; ATTEND Internal Medicine
DX: G45.9 Transient cerebral ischemic attack, unspecified (principal); M32.9 Systemic lupus erythematosus, unspecified; Z68.41 Body mass index [BMI] 40.0-44.9, adult; E66.9 Obesity, unspecified; R51 Headache; I10 Essential (primary) hypertension; E78.5 Hyperlipidemia, unspecified; R73.03 Prediabetes
CPT/HCPCS: 36415; 70450-TC; 70551-TC; 72050-TC; 80048; 80053; 81003; 81015; 82465; 83718; 83721; 83735; 84100; 84443; 84478; 84484; 85025; 85610; 86850; 86900; 86901; 93005; 93010; 93306-TC; 93880-TC; 97116-GP; 97161-GP; 99285-25; J1644

== ENCOUNTER 2019-02-17 19:03 | Emergency (ER) | payer SELFPAY ==
--- NOTE | 2019-02-17 19:12 | PDOC ---
Rapid Medical Evaluation Time Seen by Provider: 02/17/19 19:06 Medical Evaluation: Allergies Allergy/AdvReac Type Severity Reaction Status Date / Time No Known Allergies Allergy Verified 06/22/17 23:33 02/17/19 19:07 The patient presents with a chief complaint of: rt arm swelling w/ bump x 2 weeks, no change in color, area hot, denies trauma, hx Htn , last took 2 days ago(ran out of amlodipine) I have performed a brief in-person evaluation of this patient Pertinent physical exam findings: 208/108, noted tender warm raised area to rt elbow and prox aspect of bicep, I have ordered the following: cbc, comp, uric acid, The patient will proceed to the ED for further evaluation Discharge Disposition - Diagnosis Arm pain - Referrals - Patient Instructions - Post Discharge Activity
[2019-02-17 19:23] VITALS: PULSE 75; TEMP 98.4; BMI 44.7
--- NOTE | 2019-02-17 19:38 | PDOC ---
*Physical Exam - Vital Signs Last Vital Signs Temp Pulse Resp BP Pulse Ox 98.4 F 75 18 209/108 H 100 02/17/19 19:07 02/17/19 19:07 02/17/19 19:07 02/17/19 19:07 02/17/19 19:07 ED Treatment Course - LABORATORY CBC & Chemistry Diagram: 02/17/19 19:29 02/17/19 19:29 Medical Decision Making - Medical Decision Making 02/17/19 19:38 Patient seen by the advanced practice provider under my direct supervision. Ancillary testing reviewed as necessary. I agree with plan as outlined by the advanced practice provider. *DC/Admit/Observation/Transfer Diagnosis at time of Disposition: Elbow pain, right Hypertension Qualifiers: Hypertension type: essential hypertension Qualified Code(s): I10 - Essential ( primary) hypertension - Discharge Dispostion Disposition: HOME - Prescriptions Prescriptions: Amlodipine Besylate [Norvasc -] 5 mg PO DAILY #30 tablet Ibuprofen 800 mg PO QID PRN #20 tablet PRN Reason: Pain - Referrals Referrals: Baltazar Jack MD [Staff Physician] - Maryanne Hoffman MD [Primary Care Provider] - - Patient Instructions Printed Discharge Instructions: DI for Elbow Pain Additional Instructions: Take ibuprofen every 6 hours as needed for pain You need to follow up with an orthopedic doctor Please follow-up with your primary care doctor for your blood pressure medication refill. You should check your blood pressure daily. Continue a heart healthy diet with low sodium. - Post Discharge Activity Forms/Work/School Notes: Back to Work
[2019-02-17 19:43] LABS: BASO % 1.1 % (0-2.0); EOS % 2.7 % (0-4.5); HEMATOCRIT 39.1 % (32.4-45.2); HEMOGLOBIN 13.2 GM/dL (10.7-15.3); LYMPH % 33.7 % (8-40); MCH 29.1 pg (25.7-33.7); MCHC 33.8 g/dl (32.0-36.0); MEAN CELL VOLUME 86.1 fl (80-96); MEAN PLT VOLUME 8.2 fl (7.5-11.1); MONO % 4.9 % (3.8-10.2); NEUT % 57.6 % (42.8-82.8); PLATELET COUNT 258 K/MM3 (134-434); RBC 4.55 M/mm3 (3.60-5.2); RDW 13.2 % (11.6-15.6); WHITE BLOOD COUNT 7.4 K/mm3 (4.0-10.0)
[2019-02-17] MEDS ORDERED: amLODIPine BESYLATE 10 MG TABLET (FP) PO ONE (19:48)
--- NOTE | 2019-02-17 19:49 | PDOC ---
History of Present Illness - General Chief Complaint: Pain Stated Complaint: PAIN Time Seen by Provider: 02/17/19 19:06 History Source: Patient - History of Present Illness Initial Comments: 02/17/19 20:47 48-year-old female complaining of right elbow pain for the last 2 weeks. Patient denies any injury or trauma to the area. No obvious swelling noted patient reports that sometimes it gets a little warm pain is worse with movement. Denies fevers/chills or redness to the area. Patient reports that she hasn't taken her amlodipine for the last 2 days because she ran out of medication. Denies chest pain, dizziness, nausea, vomiting. 02/17/19 20:53 Occurred: reports: other (2 weeks) Pain Location: reports: upper extremity Past History - Past Medical History Allergies/Adverse Reactions: Allergies Allergy/AdvReac Type Severity Reaction Status Date / Time No Known Allergies Allergy Verified 02/17/19 21:11 Home Medications: Ambulatory Orders Atorvastatin Ca [Lipitor] 40 mg PO HS #30 tablet 06/24/17 Amlodipine Besylate 5 mg PO DAILY #30 tablet 02/17/19 Amlodipine Besylate [Norvasc -] 5 mg PO DAILY #30 tablet 02/17/19 Ibuprofen 800 mg PO QID PRN #20 tablet 02/17/19 Ibuprofen 800 mg PO QID PRN #20 tablet 02/17/19 Anemia: No Asthma: No Cancer: No Cardiac Disorders: No CVA: No COPD: No CHF: No Dementia: No Diabetes: No GI Disorders: No Disorders: No HTN: Yes Hypercholesterolemia: Yes Liver Disease: No Seizures: No - Immunization History Td Vaccination: Yes Immunization Up to Date: Yes - Suicide/Smoking/Psychosocial Hx Smoking Status: No Smoking History: Never smoked Years of Tobacco Use: 0 Have you smoked in the past 12 months: No Number of Cigarettes Smoked Daily: 0 Cigars Per Day: 0 Information on smoking cessation initiated: No Hx Alcohol Use: No Drug/Substance Use Hx: No Substance Use Type: None Hx Substance Use Treatment: No Review of Systems - Review of Systems Able to Perform ROS?: Yes Is the patient limited Afghan proficient: No Constitutional: No: Symptoms Reported, See HPI, Chills, Diaphoresis, Fever, Loss of Appetite, Malaise, Night Sweats, Weakness, Weight Stable, Unintentional Wgt. Loss, Unexplained wgt Loss, Other Musculoskeletal: Yes: Joint Pain, Joint Swelling, Other (right elbow p pain) Integumentary: No: Symptoms Reported, See HPI, Bruising, Change in Color, Change in Hair/Nails, Dryness, Erythema, Flushing, Lesions, Lumps, Pallor, Pruritus, Rash, Sweating, Other *Physical Exam - Vital Signs Last Vital Signs Temp Pulse Resp BP Pulse Ox 98.4 F 75 18 209/108 H 100 02/17/19 19:07 02/17/19 19:07 02/17/19 19:07 02/17/19 19:07 02/17/19 19:07 - Physical Exam General Appearance: Yes: Appropriately Dressed, Obese Respiratory/Chest: positive: Lungs Clear, Normal Breath Sounds Cardiovascular: positive: Regular Rhythm, Regular Rate Gastrointestinal/Abdominal: positive: Normal Bowel Sounds, Soft Musculoskeletal: positive: Normal Inspection Extremity: positive: Normal Capillary Refill, Normal Inspection, Normal Range of Motion, Other (+ distal pulses b/l to upper extremities, point tenderness to the elbow. no redness noted) Integumentary: positive: Normal Color, Dry, Warm Neurologic: positive: Fully Oriented, Alert Heart Score/ECG Review - ECG Intrepretation Rhythm: Regular Rhythm Comment:: 02/17/19 22:02 NSR: 72bpm ED Treatment Course - LABORATORY CBC & Chemistry Diagram: 02/17/19 19:29 02/17/19 19:29 - ADDITIONAL ORDERS Additional order review: 02/17/19 19:29 RBC 4.55 MCV 86.1 MCHC 33.8 RDW 13.2 MPV 8.2 Neutrophils % 57.6 Lymphocytes % 33.7 Monocytes % 4.9 Eosinophils % 2.7 Basophils % 1.1 Progress Note - Progress Note Progress Note: right elbow pain p; Pain control Ultrasound negative for DVT/fluid collection. X-ray with no acute findings. Hypertension: Will give amlodipine and give of refill dose until she follows up with her PCP. Medical Decision Making - Medical Decision Making 02/17/19 22:04 pain improved after ibuprofen. advised to follow wup with ortho and pcp/ b/p 170/94 *DC/Admit/Observation/Transfer Diagnosis at time of Disposition: Elbow pain, right Hypertension Qualifiers: Hypertension type: essential hypertension Qualified Code(s): I10 - Essential ( primary) hypertension - Discharge Dispostion Disposition: HOME - Prescriptions Prescriptions: Amlodipine Besylate [Norvasc -] 5 mg PO DAILY #30 tablet Amlodipine Besylate 5 mg PO DAILY #30 tablet Ibuprofen 800 mg PO QID PRN #20 tablet PRN Reason: Pain Ibuprofen 800 mg PO QID PRN #20 tablet PRN Reason: Pain - Referrals Referrals: Maryanne Hoffman MD [Primary Care Provider] - Baltazar Jack MD [Staff Physician] - - Patient Instructions Printed Discharge Instructions: DI for Elbow Pain Additional Instructions: Take ibuprofen every 6 hours as needed for pain You need to follow up with an orthopedic doctor Please follow-up with your primary care doctor for your blood pressure medication refill. You should check your blood pressure daily. Continue a heart healthy diet with low sodium. - Post Discharge Activity Forms/Work/School Notes: Back to Work
[2019-02-17 20:06] LABS: ALBUMIN 3.7 g/dl (3.4-5.0); ALK PHOS 126 U/L (45-117); ANION GAP 6 MMOL/L (8-16); BILIRUBIN,TOTAL 0.3 mg/dL (0.2-1); BLOOD UREA NITROGEN 17 mg/dL (7-18); CALCIUM 8.4 mg/dL (8.5-10.1); CHLORIDE 109 mmol/L (98-107); CO2 25 mmol/L (21-32); CREATININE 0.6 mg/dL (0.55-1.3); GLUCOSE,RANDOM 106 mg/dL (74-106); POTASSIUM 3.9 mmol/L (3.5-5.1); SGOT/AST 33 U/L (15-37); SGPT/ALT 50 U/L (13-61); SODIUM 140 mmol/L (136-145); TOT PROT 7.7 g/dl (6.4-8.2); URIC ACID 4.2 mg/dL (2.6-7.2)
[2019-02-17] MEDS ORDERED: IBUPROFEN 400 MG TABLET (FP) PO ONE ×2 (20:13→21:00)
[2019-02-17] MEDS ORDERED: amLODIPine BESYLATE 5 MG TABLET (FP) ONE (21:00)
[2019-02-18 04:24] VITALS: BP 170/94
--- NOTE | 2019-02-18 10:14 | EKG ---
Test Reason : Blood Pressure : / mmHG Vent. Rate : 072 BPM Atrial Rate : 072 BPM P-R Int : 144 ms QRS Dur : 088 ms QT Int : 420 ms P-R-T Axes : 038 -04 000 degrees QTc Int : 459 ms NORMAL SINUS RHYTHM NORMAL ECG WHEN COMPARED WITH ECG OF 23-JUN-2017 00:17, NO SIGNIFICANT CHANGE WAS FOUND Confirmed by EVAN KENT MD ([id number]) on 02/18/2019 10:14:11 AM Referred By: Confirmed By:EVAN KENT MD
== END 2019-02-17 22:15 | disposition home or self-care (01) ==
LOC: JER 19:03
DX: M25.521 Pain in right elbow (principal); I10 Essential (primary) hypertension; Z91.14 Patient's other noncompliance with medication regimen
CPT/HCPCS: 36415; 73070-TC-RT-FY; 76882-TC-RT-FY; 80053; 84550; 85025; 93005; 93010; 93971; 99283-25

== ENCOUNTER 2019-09-28 19:14 | Inpatient (IN) | payer OTHER ==
[2019-09-28 19:46] VITALS: BMI 38.9
--- NOTE | 2019-09-28 20:39 | PDOC ---
History of Present Illness - General Chief Complaint: Headache Stated Complaint: HEADACHE Time Seen by Provider: 09/28/19 20:34 - History of Present Illness Initial Comments: 09/28/19 20:38 49-year-old female with a past medical history of hypertension presents for 2 days of right-sided numbness and tingling and intermittent headache mildly relieved with Tylenol and Motrin Past History - Past Medical History Allergies/Adverse Reactions: Allergies Allergy/AdvReac Type Severity Reaction Status Date / Time No Known Allergies Allergy Verified 02/17/19 21:11 Home Medications: Ambulatory Orders Atorvastatin Ca [Lipitor] 40 mg PO HS #30 tablet 06/24/17 Amlodipine Besylate 5 mg PO DAILY #30 tablet 02/17/19 Amlodipine Besylate [Norvasc -] 5 mg PO DAILY #30 tablet 02/17/19 Ibuprofen 800 mg PO QID PRN #20 tablet 02/17/19 Ibuprofen 800 mg PO QID PRN #20 tablet 02/17/19 Anemia: No Asthma: No Cancer: No Cardiac Disorders: No CVA: No COPD: No CHF: No Dementia: No Diabetes: No GI Disorders: No Disorders: No HTN: Yes Hypercholesterolemia: Yes Liver Disease: No Seizures: No - Immunization History Td Vaccination: Yes Immunization Up to Date: Yes - Psycho Social/Smoking Cessation Hx Smoking Status: No Smoking History: Never smoked Years of Tobacco Use: 0 Have you smoked in the past 12 months: No Number of Cigarettes Smoked Daily: 0 Cigars Per Day: 0 Hx Alcohol Use: No Drug/Substance Use Hx: No Substance Use Type: None Hx Substance Use Treatment: No Review of Systems - Review of Systems Neurological: Yes: Headache, Numbness, Tingling *Physical Exam - Vital Signs Last Vital Signs Temp Pulse Resp BP Pulse Ox 98.2 F 65 19 136/69 99 09/28/19 19:42 09/28/19 19:42 09/28/19 19:42 09/28/19 19:42 09/28/19 19:42 - Physical Exam Comments: 09/28/19 20:38 GENERAL: The patient is awake, alert, and fully oriented, in no acute distress. HEAD: Normal with no signs of trauma. EYES: sclera anicteric, conjunctiva clear. ENT: Ears normal NECK: Normal range of motion LUNGS: Breath sounds equal, clear to auscultation bilaterally. No wheezes, and no crackles. HEART: S1 and S2 without murmur, rub or gallop. ABDOMEN: Soft, nontender, normoactive bowel sounds. No guarding, no rebound. No masses. EXTREMITIES: Normal range of motion, no edema. No clubbing or cyanosis. No cords, erythema, or tenderness. NEUROLOGICAL: Cranial nerves II through XII grossly intact. Normal speech, normal gait. PSYCH: Normal mood, normal affect. SKIN: Warm, Dry, normal turgor, no rashes or lesions noted. ED Treatment Course - RADIOLOGY Radiology Studies Ordered: Category Date Time Status HEAD CT (STROKE) [CT] Stat CT Scan 09/28/19 20:37 Ordered Medical Decision Making - Medical Decision Making 09/28/19 20:38 CVA orders placed patient moved to main emergency room Discharge - Discharge Information Problems reviewed: Yes Clinical Impression/Diagnosis: Headache - Follow up/Referral Referrals: Maryanne Hoffman MD [Primary Care Provider] - - Patient Discharge Instructions - Post Discharge Activity
[2019-09-28] MEDS ORDERED: SODIUM CHLORIDE 1,000 ML IV SCH (20:45)
[2019-09-28] MEDS ORDERED: ACETAMINOPHEN 1000 MG/100 ML VIAL (NON FORMULARY) IVPB ONE (21:26)
[2019-09-28] MEDS ORDERED: METOCLOPRAMIDE HCL INJECTION 10 MG/2 ML VIAL IVPUSH ONE (21:26)
[2019-09-28 21:59] LABS: EOS % 3.2 % (0-4.5); HEMATOCRIT 39.1 % (32.4-45.2); HEMOGLOBIN 12.9 GM/dL (10.7-15.3); LYMPH % 34.4 % (8-40); MCH 28.4 pg (25.7-33.7); MEAN CELL VOLUME 86.2 fl (80-96); MEAN PLT VOLUME 8.5 fl (7.5-11.1); MONO % 5.9 % (3.8-10.2); NEUT % 55.5 % (42.8-82.8); PLATELET COUNT 261 K/MM3 (134-434); RBC 4.54 M/mm3 (3.60-5.2); RDW 13.6 % (11.6-15.6); WHITE BLOOD COUNT 7.4 K/mm3 (4.0-10.0)
[2019-09-28 22:12] LABS: INR 1.03 (0.83-1.09); PROTHROMBIN TIME (PATIENT) 12.1 SEC (9.7-13.0)
[2019-09-28 22:15] LABS: ACTIVATED PTT 33.5 SECONDS (25.2-36.5)
[2019-09-28 22:28] LABS: LDL CHOLESTEROL (ONLY SJRH) 112 mg/dL (5-100); TRIGLYCERIDES 265 mg/dL (0-150)
[2019-09-28 22:32] LABS: ALBUMIN 3.3 g/dl (3.4-5.0); BILIRUBIN,TOTAL 0.3 mg/dL (0.2-1); BLOOD UREA NITROGEN 17.9 mg/dL (7-18); CALCIUM 8.4 mg/dL (8.5-10.1); CREATININE 0.7 mg/dL (0.55-1.3); POTASSIUM 4.4 mmol/L (3.5-5.1); TOT PROT 7.1 g/dl (6.4-8.2)
[2019-09-28] MEDS ORDERED: ACETAMINOPHEN INJECTION 100 ML IVPB ONE (22:46)
[2019-09-28] MEDS ORDERED: METOCLOPRAMIDE HCL INJECTION 10 MG/2 ML VIAL ONE (22:46)
--- NOTE | 2019-09-28 23:21 | PDOC ---
History of Present Illness - General Chief Complaint: Headache Stated Complaint: HEADACHE Time Seen by Provider: 09/28/19 20:34 - History of Present Illness Initial Comments: 09/28/19 23:10 HPI: 49 y/o F with hx of HTN, lupus, R bells palsy (2 years ago), and ?TIA vs CVA ( although no evidence on MRI in past) presenting with 3 days of right occipital and frontal AUGUSTE that has been worsening since yesterday. Pain is throbbing in anture. She attempted tylenol and motrin with no improvement. She also reports RUE/RLE numbness and tingling that is intermittent lasting about 15min at a time. She also reports palpitations, slurred speech and difficulty word finding at the same time as the AUGUSTE and sensation changes. She denies n/v, fever, chest pain, abd pain, SOB, weakness. She also reports she was told to stop taking her ASA due to frequent nose bleeds. PMHx: as noted above ROS: as noted SHx: Denies tobacco use; no alcohol use; no rec drugs Allergies: NKDA ROS: GENERAL/CONSTITUTIONAL: No fever or chills. No weakness. HEAD, EYES, EARS, NOSE AND THROAT: No change in vision. No ear pain or discharge. No sore throat. CARDIOVASCULAR: No chest pain or shortness of breath RESPIRATORY: No cough, wheezing, or hemoptysis. GASTROINTESTINAL: No nausea, vomiting, diarrhea or constipation. GENITOURINARY: No dysuria, frequency, or change in urination. MUSCULOSKELETAL: No joint or muscle swelling or pain. No neck or back pain. SKIN: No rash NEUROLOGIC: +headache, and change in sensation; no vertigo, loss of consciousness ENDOCRINE: No increased thirst. No abnormal weight change HEMATOLOGIC/LYMPHATIC: No anemia, easy bleeding, or history of blood clots. ALLERGIC/IMMUNOLOGIC: No hives or skin allergy. PE: GENERAL: Awake, alert, and fully oriented, no acute distress HEAD: No signs of trauma, normocephalic, atraumatic EYES: EOMI, sclera anicteric, conjunctiva clear ENT: Auricles normal inspection, hearing grossly normal, nares patent, oropharynx clear without exudates. Moist mucosa NECK: Normal ROM, no lymphadenopathy LUNGS: No increased work of breathing, symmetrical chest rise, clear to auscultation bilaterally, no wheezes, crackles or rhonchi HEART: Regular rate and rhythm, normal S1 and S2, no murmurs, peripheral pulses 2+ and equal bilaterally. ABDOMEN: Soft, nondistended, nontender, normoactive bowel sounds. No guarding, no rebound. No masses. No CVAT EXTREMITIES: Normal inspection, Normal range of motion, no edema. No clubbing or cyanosis. NEUROLOGICAL: Cranial nerves II through XII grossly intact. Normal speech, normal gait, 5/5 str, decreased sensation in RUE/RLE SKIN: Warm, Dry, normal turgor, no rashes or lesions noted tPA Exclusion checklist 3-4.5h - Time Elapsed Date last known well: 09/27/19 - Ineligibility reason(s) Reasons No tPA given: Outside of window - delayed arrival NIH Stroke Scale - Last Known Well Date/Time & Onset Date Last Known Well: 09/27/19 - Initial Evaluation Level of consciousness: Alert Ask patient the month and their age: Answers both correctly Ask patient to open & close eyes; make fist and let go: Obeys both correctly Best gaze (horizontal eye movement): Normal Visual field testing: No visual field loss Facial paresis (Show teeth/raise eyebrows/close eyes tight): Normal symmetrical movement Motor Function: Left Arm: Normal Motor Function: Right Arm: Normal (extends arm 90 (or 45) degrees for 10 seconds without drift Motor Function: Left Leg: Normal (extends leg 30 degrees for 5 seconds without drift) Motor Function: Right Leg: Normal (extends leg 30 degrees for 5 seconds without drift) Limb Ataxia: No ataxia Sensory(Use pinprick test arms,legs,trunk,face/side to side): Mild to moderate decrease in sensation Best language (Describe picture, name items, read sentences): No Aphasia Dysarthria (read several words): Normal articulation Extinction and Inattention: No abnormality - Total Score NIH Stroke Scale Score: 1 Past History - Past Medical History Allergies/Adverse Reactions: Allergies Allergy/AdvReac Type Severity Reaction Status Date / Time No Known Allergies Allergy Verified 02/17/19 21:11 Home Medications: Ambulatory Orders Atorvastatin Ca [Lipitor] 40 mg PO HS #30 tablet 06/24/17 Amlodipine Besylate 5 mg PO DAILY #30 tablet 02/17/19 Amlodipine Besylate [Norvasc -] 5 mg PO DAILY #30 tablet 02/17/19 Ibuprofen 800 mg PO QID PRN #20 tablet 02/17/19 Ibuprofen 800 mg PO QID PRN #20 tablet 02/17/19 Anemia: No Asthma: No Cancer: No Cardiac Disorders: No CVA: No COPD: No CHF: No Dementia: No Diabetes: No GI Disorders: No Disorders: No HTN: Yes Hypercholesterolemia: Yes Liver Disease: No Seizures: No - Immunization History Td Vaccination: Yes Immunization Up to Date: Yes - Psycho Social/Smoking Cessation Hx Smoking Status: No Smoking History: Never smoked Years of Tobacco Use: 0 Have you smoked in the past 12 months: No Number of Cigarettes Smoked Daily: 0 Cigars Per Day: 0 Hx Alcohol Use: No Drug/Substance Use Hx: No Substance Use Type: None Hx Substance Use Treatment: No *Physical Exam - Vital Signs Last Vital Signs Temp Pulse Resp BP Pulse Ox 98.2 F 65 19 136/69 99 09/28/19 19:42 09/28/19 19:42 09/28/19 19:42 09/28/19 19:42 09/28/19 19:42 ED Treatment Course - LABORATORY CBC & Chemistry Diagram: 09/28/19 21:44 09/28/19 21:44 - ADDITIONAL ORDERS Additional order review: Laboratory Results 09/28/19 09/28/19 09/28/19 21:44 21:44 21:44 PT with INR INR PTT (Actin FS) Sodium Potassium Chloride Carbon Dioxide Anion Gap BUN Creatinine Est GFR (CKD-EPI)AfAm Est GFR (CKD-EPI)NonAf Random Glucose Calcium Total Bilirubin AST ALT Alkaline Phosphatase Creatine Kinase Troponin I Total Protein Albumin Triglycerides 265 H Cholesterol Total LDL Cholesterol 112 H HDL Cholesterol 43 Blood Type O POSITIVE Antibody Screen Negative 09/28/19 09/28/19 21:44 21:44 PT with INR 12.10 INR 1.03 PTT (Actin FS) 33.5 Sodium 138 Potassium 4.4 Chloride 109 H Carbon Dioxide 24 Anion Gap 5 L BUN 17.9 Creatinine 0.7 Est GFR (CKD-EPI)AfAm 117.91 Est GFR (CKD-EPI)NonAf 101.74 Random Glucose 97 Calcium 8.4 L Total Bilirubin 0.3 AST 43 H ALT 61 Alkaline Phosphatase 123 H Creatine Kinase 132 Troponin I 0.02 Total Protein 7.1 Albumin 3.3 L Triglycerides Cholesterol 186 Total LDL Cholesterol HDL Cholesterol Blood Type Antibody Screen 09/28/19 21:44 RBC 4.54 MCV 86.2 MCHC 33.0 RDW 13.6 MPV 8.5 Neutrophils % 55.5 Lymphocytes % 34.4 Monocytes % 5.9 Eosinophils % 3.2 Basophils % 1.0 - Medications Given in the ED: ED Medications Discontinued Medications Generic Name Dose Route Start Last Admin Trade Name Zoey PRN Reason Stop Dose Admin Acetaminophen 1,000 mg 09/28/19 21:26 09/28/19 22:55 Ofirmev Injection - IVPB 09/28/19 21:27 1,000 mg ONCE ONE Administration Metoclopramide HCl 10 mg 09/28/19 21:26 09/28/19 22:55 Reglan Injection - IVPUSH 09/28/19 21:27 10 mg ONCE ONE Administration Medical Decision Making - Medical Decision Making 09/28/19 23:41 49 y/o F with hx of HTN, lupus, R bells palsy (2 years ago), and ?TIA vs CVA ( although no evidence on MRI in past) presenting with 3 days of right occipital and frontal AUGUSTE that has been worsening since yesterday associated with RUE/RLE numbness and slurred speech/word finding difficulty -CVA order set -ofirmev, ivf, reglan -ASA 09/28/19 23:43 CT head negative labs unremarkable will admit to tele for TIA ruleout and further evaluation 09/29/19 00:02 neuro consulted; rec for mri brain without con will admit to [facility] asa 324 adminstered Discharge - Discharge Information Problems reviewed: Yes Clinical Impression/Diagnosis: Headache Qualifiers: Headache type: unspecified Headache chronicity pattern: acute headache Intractability: not intractable Qualified Code(s): R51 - Headache Condition: Stable - Admission Yes - Follow up/Referral Referrals: Maryanne Hoffman MD [Primary Care Provider] - - Patient Discharge Instructions - Post Discharge Activity
[2019-09-28] MEDS ORDERED: ASPIRIN 81 MG CHEWABLE TABLETS PO ONE (23:25)
[2019-09-28] MEDS ORDERED: ASPIRIN 81 MG CHEWABLE TABLETS ONE (23:34)
[2019-09-28 23:39] VITALS: TEMP 98.6
--- NOTE | 2019-09-28 23:59 | PDOC ---
*Physical Exam - Vital Signs Last Vital Signs Temp Pulse Resp BP Pulse Ox 98.6 F 72 18 149/73 96 09/28/19 23:38 09/28/19 23:38 09/28/19 23:38 09/28/19 23:38 09/28/19 23:38 ED Treatment Course - LABORATORY CBC & Chemistry Diagram: 09/29/19 05:30 09/29/19 05:30 - ADDITIONAL ORDERS Additional order review: Laboratory Results 09/28/19 09/28/19 09/28/19 21:44 21:44 21:44 PT with INR INR PTT (Actin FS) Sodium Potassium Chloride Carbon Dioxide Anion Gap BUN Creatinine Est GFR (CKD-EPI)AfAm Est GFR (CKD-EPI)NonAf Random Glucose Calcium Total Bilirubin AST ALT Alkaline Phosphatase Creatine Kinase Troponin I Total Protein Albumin Triglycerides 265 H Cholesterol Total LDL Cholesterol 112 H HDL Cholesterol 43 Blood Type O POSITIVE Antibody Screen Negative 09/28/19 09/28/19 21:44 21:44 PT with INR 12.10 INR 1.03 PTT (Actin FS) 33.5 Sodium 138 Potassium 4.4 Chloride 109 H Carbon Dioxide 24 Anion Gap 5 L BUN 17.9 Creatinine 0.7 Est GFR (CKD-EPI)AfAm 117.91 Est GFR (CKD-EPI)NonAf 101.74 Random Glucose 97 Calcium 8.4 L Total Bilirubin 0.3 AST 43 H ALT 61 Alkaline Phosphatase 123 H Creatine Kinase 132 Troponin I 0.02 Total Protein 7.1 Albumin 3.3 L Triglycerides Cholesterol 186 Total LDL Cholesterol HDL Cholesterol Blood Type Antibody Screen 09/28/19 21:44 RBC 4.54 MCV 86.2 MCHC 33.0 RDW 13.6 MPV 8.5 Neutrophils % 55.5 Lymphocytes % 34.4 Monocytes % 5.9 Eosinophils % 3.2 Basophils % 1.0 - Medications Given in the ED: ED Medications Discontinued Medications Generic Name Dose Route Start Last Admin Trade Name Freq PRN Reason Stop Dose Admin Acetaminophen 1,000 mg 09/28/19 21:26 09/28/19 22:55 Ofirmev Injection - IVPB 09/28/19 21:27 1,000 mg ONCE ONE Administration Aspirin 324 mg 09/28/19 23:25 09/28/19 23:38 Asa - PO 09/28/19 23:26 324 mg ONCE ONE Administration Metoclopramide HCl 10 mg 09/28/19 21:26 09/28/19 22:55 Reglan Injection - IVPUSH 09/28/19 21:27 10 mg ONCE ONE Administration Medical Decision Making - Medical Decision Making 09/28/19 23:57 Signed out from artion team - neuro c/s - admit stroke-obs for tia vs cva 09/29/19 00:00 Dr. Hess discussed pt w/ Neurology; c/s placed 09/29/19 00:37 Endorsed to MAR Admitted stroke/obs Discharge - Discharge Information Problems reviewed: Yes Clinical Impression/Diagnosis: Headache Qualifiers: Headache type: unspecified Headache chronicity pattern: acute headache Intractability: not intractable Qualified Code(s): R51 - Headache Condition: Stable - Admission Yes - Follow up/Referral - Patient Discharge Instructions - Post Discharge Activity
--- NOTE | 2019-09-29 00:04 | PDOC ---
Documentation entered by King Reyes SCRIBE, acting as scribe for Donna Castillo MD. Donna Castillo MD: This documentation has been prepared by the Eric kirk Nirvannie, SCRIBE, under my direction and personally reviewed by me in its entirety. I confirm that the documentation accurately reflects all work, treatment, procedures, and medical decision making performed by me. Attending Attestation - Resident Resident Name: Billy Hess - ED Attending Attestation I have performed the following: I have examined & evaluated the patient, The case was reviewed & discussed with the resident, I agree w/resident's findings & plan - HPI HPI: 09/28/19 23:35 The patient is a 49 year old female, with a significant past medical history of Blas's Palsy, TIA, HTN and SLE, who presents to the emergency department with, 2 days of a right-sided headache, right neck pain, and right sided paresthesias. She denies any shortness of breath. Allergies: NKDA - Physicial Exam PE: 09/28/19 23:25 Obese 49-year-old female presents with complaint of difficulties with word search, intermittent tingling to her right arm and leg and headache Head normocephalic atraumatic Eyes pupils equal reactive light and accommodation, extraocular movements intact Neck no bruits supple Lungs clear to auscultation CVS regular rate and rhythm S1-S2 Abdomen protuberant Skin warm and dry Extremities no deformities Neuro alert and oriented x3, subjective tingling numbness to right arm, motor strength 5 out of 5 bilaterally, DTR +2,no ataxia - Medical Decision Making 09/28/19 23:29 obese 49 yo female Presents with concerns of headache, intermittent paresthesias to her right arm and leg since last evening, difficulties with word search and speech difficulties since last evening Currently she is alert,conversant,ambulatory with no focal weakness 09/28/19 23:30 ct scan head no acute infarct,no acute bleed, no masses, no midline shift labs reciewed 09/29/19 00:03 will admit for neuro consultation,mri
--- NOTE | 2019-09-29 00:50 | PN ---
Teaching Attending Note Name of Resident: Nena Geiger ATTENDING PHYSICIAN STATEMENT I saw and evaluated the patient. I reviewed the resident's note and discussed the case with the resident. I agree with the resident's findings and plan as documented. SUBJECTIVE: Patient is a 49 year old woman with PMH of HTN, SLE, Right garcia's palsy (2 years ago), and ?TIA vs CVA (although no evidence on MRI in past) presenting with 3 days of right occipital and frontal headache that has been worsening since yesterday. Pain is throbbing in nature. She attempted tylenol and motrin with no improvement. She also reports RUE/RLE numbness and tingling that is intermittent lasting about 15 minutes at a time. She also reports palpitations, slurred speech and difficulty word finding at the same time as the headache and sensation changes. She denies nausea, vomiting, fever, chest pain, abdominal pain, SOB, dysuria or weakness. Reports she was told to stop taking her ASA due to frequent nose bleeds. Denies tobacco, alcohol and illicit drug use. OBJECTIVE: Alert Vital Signs Period Temp Pulse Resp BP Sys/Alvarado Pulse Ox Last 24 Hr 98.2 F-98.6 F 65-72 18-19 136-149/69-73 96-99 HEENT: No Jaundice, eye redness or discharge, PERRLA, EOMI. Normocephalic, atraumatic. External ears are normal and hearing is grossly intact. No nasal discharge. Neck: Supple, nontender. No palpable adenopathy or thyromegaly. No JVD Chest: Good effort. Clear to auscultation and percussion. Heart: Regular. No S3, rub or murmur Abdomen: Not distended, soft, nontender and no HSM. No rebound or guarding. Normal bowel sounds. Ext: Peripheral pulses intact. No leg edema. Skin: Warm and dry. No petechiae, rash or ecchymosis. Neuro: Alert. Oriented x3. CN 2-12 grossly intact. Sensation grossly intact in all four extremities and DTR are symmetric. Psych: Appropriate mood and affect. Good insight. Current Medications Generic Name Dose Route Start Last Admin Trade Name Freq PRN Reason Stop Dose Admin Sodium Chloride 1,000 mls @ 42 mls/hr 09/28/19 20:45 11/11/19 23:23 Normal Saline - IV 42 mls/hr ASDIR NANETTE Administration Home Medications Medication Instructions Recorded Atorvastatin Ca [Lipitor] 40 mg PO HS #30 tablet 06/24/17 Amlodipine Besylate 5 mg PO DAILY #30 tablet 02/17/19 Amlodipine Besylate [Norvasc -] 5 mg PO DAILY #30 tablet 02/17/19 Ibuprofen 800 mg PO QID PRN #20 tablet 02/17/19 Ibuprofen 800 mg PO QID PRN #20 tablet 02/17/19 Abnormal Lab Results 09/28/19 09/28/19 21:44 21:44 Chloride 109 H Anion Gap 5 L Calcium 8.4 L AST 43 H Alkaline Phosphatase 123 H Albumin 3.3 L Triglycerides 265 H Total LDL Cholesterol 112 H ASSESSMENT AND PLAN: 1. TIA? - No acute abnormality on noncontrast head CT scan. NIHSS score was 1 in the ER. EKG shows NSR with no significant ST-T wave changes. Patient was outside the window for tPA. Will get ECHO, monitor on telemetry, get carotid doppler, speech/swallow evaluation, brain MRI, use ASA, optimize statin therapy , consult PT and Neurology. Will continue comprehensive care for all of patient s comorbid conditions. 2. Hypoalbuminemia - Possibly due to combined effects of malnutrition and inflammation associated with comorbid chronic conditions. Will ensure adequate dietary protein intake and also consult apprentice electrician. 3. Obesity Counseled on the risks associated with obesity. Will provide patient all the necessary assistance, counseling and positive reinforcement to facilitate weight loss. Consult apprentice electrician. 4. Hypertension - Will implement permissive hypertension for now. Restart suitable outpatient antihypertensive drugs when clinically appropriate. Revise regimen to ensure [id number] excellent BP control and intellectual property counsel patient on the injurious effects of uncontrolled hypertension. Nonpharmacologic measures to control hypertension like weight loss, salt restriction and exercise discussed. Importance of adherence to treatment regimen and attainment of normotension emphasized. 5. DVT prophylaxis - Lovenox 40 mg SQ q 24 hours. 6. Advance directives - Full code
[2019-09-29 01:56] LABS: URINE APPEARANCE CLEAR; URINE BILIRUBIN NEGATIVE (NEGATIVE); URINE COLOR YELLOW; URINE GLUCOSE (UA) NEGATIVE (NEGATIVE); URINE KETONE NEGATIVE (NEGATIVE); URINE LEUK ESTERASE NEGATIVE (NEGATIVE); URINE NITRITE NEGATIVE (NEGATIVE); URINE PROTEIN NEGATIVE (NEGATIVE); URINE UROBILINOGEN 0.2 mg/dL (0.2-1.0)
[2019-09-29 04:29] VITALS: BP 133/64; PULSE 64
--- NOTE | 2019-09-29 04:45 | HP ---
CHIEF COMPLAINT: headache with intermittent sensory deficit and weakness PCP: Dr Franco HISTORY OF PRESENT ILLNESS: 49 year old female with past medical history of HTN, right sided garcia palsy and possible TIA (negative workup in 07/04) who presented to the ED with a chief complain on 3 right occipital and frontal headache that has been worsening since yesterday, neck pain and right arm/leg numbness/weakness . The headache is throbbing in nature and minimally responsive to motrin and tylenol. Neck pain is sharp in nature that is worse with movement without alleviating nor worsening factors. 4-5/10 in severity. She reports RUE/RLE numbness and tingling/ weakness is intermittent lasting about 15 minutes at a time . Pt endorses recent weight gain and also reports palpitations, slurred speech and difficulty word finding at the same time as the headache and sensation changes. She denies loss of consciousness, fevers, chills, nausea, vomiting, vision changes, or headaches that are worse on awakening . Reports she was told to stop taking her ASA due to frequent nose bleeds. Denies tobacco, alcohol and illicit drug use. ER course was notable for: (1) VSS except for mild elevation in BP at 149/73, CBC unremarkable, CMP with AST 43, ALP 123 abnormal lipid panel with trip 265, chol 186, LDL 112 ( slight improvement from prior documented lipid panel. A1C 5.8 (2) head CT negative, (3) Neuro Dr Rivera consulted : MRI non contrast of brain tomorrow Recent Travel: none PAST MEDICAL HISTORY: as above PAST SURGICAL HISTORY: denies FAMILY HISTORY: obesity Social History: Smoking:denies Alcohol:denies Drugs: denies Allergies No Known Allergies Allergy (Verified 02/17/19 21:11) HOME MEDICATIONS: Home Medications Medication Instructions Recorded Atorvastatin Ca [Lipitor] 40 mg PO HS #30 tablet 06/24/17 Amlodipine Besylate 5 mg PO DAILY #30 tablet 02/17/19 Amlodipine Besylate [Norvasc -] 5 mg PO DAILY #30 tablet 02/17/19 Ibuprofen 800 mg PO QID PRN #20 tablet 02/17/19 Ibuprofen 800 mg PO QID PRN #20 tablet 02/17/19 REVIEW OF SYSTEMS CONSTITUTIONAL: Absent: fever, chills, diaphoresis, generalized weakness, malaise, loss of appetite, weight change HEENT: Absent: rhinorrhea, nasal congestion, throat pain, throat swelling, difficulty swallowing, mouth swelling, ear pain, eye pain, visual changes CARDIOVASCULAR: Absent: chest pain, syncope, palpitations, irregular heart rate, lightheadedness , peripheral edema RESPIRATORY: Absent: cough, shortness of breath, dyspnea with exertion, orthopnea, wheezing, stridor, hemoptysis GASTROINTESTINAL: Absent: abdominal pain, abdominal distension, nausea, vomiting, diarrhea, constipation, melena, hematochezia GENITOURINARY: Absent: dysuria, frequency, urgency, hesitancy, hematuria, flank pain, genital pain MUSCULOSKELETAL: neck pain Absent: myalgia, arthralgia, joint swelling, back pain, SKIN: Absent: rash, itching, pallor HEMATOLOGIC/IMMUNOLOGIC: Absent: easy bleeding, easy bruising, lymphadenopathy, frequent infections ENDOCRINE: Absent: unexplained weight gain, unexplained weight loss, heat intolerance, cold intolerance NEUROLOGIC: headache, focal weakness or paresthesias Absent: dizziness, unsteady gait, seizure, mental status changes, bladder or bowel incontinence PSYCHIATRIC: Absent: anxiety, depression, suicidal or homicidal ideation, hallucinations. PHYSICAL EXAMINATION Vital Signs - 24 hr 09/28/19 09/28/19 19:42 23:38 Temperature 98.2 F 98.6 F Pulse Rate 65 Pulse Rate [ 72 Apical] Respiratory 19 18 Rate Blood Pressure 136/69 Blood Pressure 149/73 [Left Arm] O2 Sat by Pulse 99 96 Oximetry (%) GENERAL: Awake, alert, and fully oriented, in no acute distress. morbid Obese HEAD: Normal with no signs of trauma. EYES: Pupils equal, round and reactive to light, extraocular movements intact, sclera anicteric, conjunctiva clear. No lid lag. EARS, NOSE, THROAT: oropharynx clear without exudates. Moist mucous membranes. NECK: Normal range of motion, supple without lymphadenopathy, JVD, or masses. acanthosis nigricans with skin tags LUNGS: Breath sounds equal, clear to auscultation bilaterally. No wheezes, and no crackles. No accessory muscle use. HEART: Regular rate and rhythm, normal S1 and S2 without murmur, rub or gallop. ABDOMEN: Soft, nontender, obese abdomen, normoactive bowel sounds, no guarding, no rebound, no masses. No hepatomegaly or splenomegaly. MUSCULOSKELETAL: Normal range of motion at all joints. No bony deformities or tenderness. No CVA tenderness. UPPER EXTREMITIES: 2+ pulses, warm, well-perfused. No cyanosis. No clubbing. No peripheral edema. LOWER EXTREMITIES: 2+ pulses, warm, well-perfused. No calf tenderness. No peripheral edema. NEUROLOGICAL: Cranial nerves II-XII intact. Normal speech. motor strength 5/5 in all extremities and sensation including pinprick normal at the time PSYCHIATRIC: Cooperative. Good eye contact. Appropriate mood and affect. SKIN: Warm, dry, normal turgor, no rashes or lesions noted, normal capillary refill. Laboratory Results - last 24 hr 09/28/19 09/28/19 09/28/19 21:44 21:44 21:44 WBC 7.4 RBC 4.54 Hgb 12.9 Hct 39.1 MCV 86.2 MCH 28.4 MCHC 33.0 RDW 13.6 Plt Count 261 MPV 8.5 Absolute Neuts (auto) 4.1 Neutrophils % 55.5 Lymphocytes % 34.4 Monocytes % 5.9 Eosinophils % 3.2 Basophils % 1.0 Nucleated RBC % 0 PT with INR 12.10 INR 1.03 PTT (Actin FS) 33.5 Sodium 138 Potassium 4.4 Chloride 109 H Carbon Dioxide 24 Anion Gap 5 L BUN 17.9 Creatinine 0.7 Est GFR (CKD-EPI)AfAm 117.91 Est GFR (CKD-EPI)NonAf 101.74 Random Glucose 97 Hemoglobin A1c % Calcium 8.4 L Total Bilirubin 0.3 AST 43 H ALT 61 Alkaline Phosphatase 123 H Creatine Kinase 132 Troponin I 0.02 Total Protein 7.1 Albumin 3.3 L Triglycerides Cholesterol 186 Total LDL Cholesterol HDL Cholesterol Urine Color Urine Appearance Urine pH Ur Specific [place] Urine Protein Urine Glucose (UA) Urine Ketones Urine Blood Urine Nitrite Urine Bilirubin Urine Urobilinogen Ur Leukocyte Esterase Blood Type Antibody Screen 09/28/19 09/28/19 09/28/19 21:44 21:44 21:44 WBC RBC Hgb Hct MCV MCH MCHC RDW Plt Count MPV Absolute Neuts (auto) Neutrophils % Lymphocytes % Monocytes % Eosinophils % Basophils % Nucleated RBC % PT with INR INR PTT (Actin FS) Sodium Potassium Chloride Carbon Dioxide Anion Gap BUN Creatinine Est GFR (CKD-EPI)AfAm Est GFR (CKD-EPI)NonAf Random Glucose Hemoglobin A1c % Calcium Total Bilirubin AST ALT Alkaline Phosphatase Creatine Kinase Troponin I Total Protein Albumin Triglycerides 265 H Cholesterol Total LDL Cholesterol 112 H HDL Cholesterol 43 Urine Color Urine Appearance Urine pH Ur Specific [place] Urine Protein Urine Glucose (UA) Urine Ketones Urine Blood Urine Nitrite Urine Bilirubin Urine Urobilinogen Ur Leukocyte Esterase Blood Type O POSITIVE Antibody Screen Negative 09/29/19 09/29/19 01:37 01:42 WBC RBC Hgb Hct MCV MCH MCHC RDW Plt Count MPV Absolute Neuts (auto) Neutrophils % Lymphocytes % Monocytes % Eosinophils % Basophils % Nucleated RBC % PT with INR INR PTT (Actin FS) Sodium Potassium Chloride Carbon Dioxide Anion Gap BUN Creatinine Est GFR (CKD-EPI)AfAm Est GFR (CKD-EPI)NonAf Random Glucose Hemoglobin A1c % 5.8 Calcium Total Bilirubin AST ALT Alkaline Phosphatase Creatine Kinase Troponin I Total Protein Albumin Triglycerides Cholesterol Total LDL Cholesterol HDL Cholesterol Urine Color Yellow Urine Appearance Clear Urine pH 6.0 Ur Specific [place] 1.015 Urine Protein Negative Urine Glucose (UA) Negative Urine Ketones Negative Urine Blood Negative Urine Nitrite Negative Urine Bilirubin Negative Urine Urobilinogen 0.2 Ur Leukocyte Esterase Negative Blood Type Antibody Screen ASSESSMENT/PLAN: 49 year old female with past medical history of HTN, right sided garcia palsy and possible TIA (negative workup in 07/04) who presented to the ED with a chief complain on 3 right occipital and frontal headache that has been worsening since yesterday, neck pain and right arm/leg numbness/weakness on geophysical e logger. admitted to r/o TIA Intermittent right sided weakness/numbness by the time of my assessment pt neurologically intact. no FND r/o TIA. NIHSS 1 pt had similar symptoms in 07/04 and workup at the time was negative Head Ct in ED negative for acute stroke or bleed trop neg x1. repeat in the AM aspirin 324 given in ED admit to Tele EKG normal sinus Neuro Dr Rivera consulted MRI non contrast of the brain tomorrow and he will see patient Echocardiogram carotid U/S NPO until speech eval speech and swallow sophy Sera consulted Fall precautions A1C at 5/8 % lipid panel as above. improved from prior admissions. however, LDL increased to 112 TSH ordered PT DVT lovenox daily Dispo: Tele Visit type - Emergency Visit Emergency Visit: Yes ED Registration Date: 09/29/19 Care time: The patient presented to the Emergency Department on the above date and was hospitalized for further evaluation of their emergent condition. - New Patient This patient is new to me today: Yes Date on this admission: 09/29/19 - Critical Care Critical Care patient: No ATTENDING PHYSICIAN STATEMENT I saw and evaluated the patient. I reviewed the resident's note and discussed the case with the resident. I agree with the resident's findings and plan as documented. SUBJECTIVE: OBJECTIVE: ASSESSMENT AND PLAN:
[2019-09-29 06:04] LABS: EOS % 3.7 % (0-4.5); HEMATOCRIT 36.1 % (32.4-45.2); HEMOGLOBIN 12.4 GM/dL (10.7-15.3); LYMPH % 38.6 % (8-40); MCH 29.2 pg (25.7-33.7); MCHC 34.2 g/dl (32.0-36.0); MEAN CELL VOLUME 85.3 fl (80-96); MEAN PLT VOLUME 8.6 fl (7.5-11.1); MONO % 5.1 % (3.8-10.2); NEUT % 51.6 % (42.8-82.8); PLATELET COUNT 249 K/MM3 (134-434); RBC 4.23 M/mm3 (3.60-5.2); RDW 13.6 % (11.6-15.6); WHITE BLOOD COUNT 7.2 K/mm3 (4.0-10.0)
[2019-09-29 06:40] LABS: ALK PHOS 109 U/L (45-117); ANION GAP 5 MMOL/L (8-16); BILIRUBIN,TOTAL 0.4 mg/dL (0.2-1); BLOOD UREA NITROGEN 15.2 mg/dL (7-18); CHLORIDE 111 mmol/L (98-107); CO2 22 mmol/L (21-32); CREATININE 0.5 mg/dL (0.55-1.3); GLUCOSE,RANDOM 91 mg/dL (74-106); MAGNESIUM 2.2 mg/dL (1.8-2.4); PHOSPHOROUS 3.3 mg/dL (2.5-4.9); SGOT/AST 38 U/L (15-37); SGPT/ALT 56 U/L (13-61); SODIUM 138 mmol/L (136-145); TOT PROT 6.4 g/dl (6.4-8.2)
--- NOTE | 2019-09-29 09:52 | EKG ---
Test Reason : Blood Pressure : / mmHG Vent. Rate : 062 BPM Atrial Rate : 062 BPM P-R Int : 142 ms QRS Dur : 092 ms QT Int : 448 ms P-R-T Axes : 048 -01 003 degrees QTc Int : 454 ms NORMAL SINUS RHYTHM NORMAL ECG WHEN COMPARED WITH ECG OF 17-FEB-2019 21:33, NO SIGNIFICANT CHANGE WAS FOUND Confirmed by MD ALISA, URIEL ([id number]) on 09/29/2019 9:52:18 AM Referred By: Confirmed By:URIEL CUELLAR MD
--- NOTE | 2019-09-29 11:18 | CONSULT ---
Consult - text type - Consultation Consultation Note: Neurology CHIEF COMPLAINT: headache with intermittent sensory deficit and weakness PCP: Dr Franco HISTORY OF PRESENT ILLNESS: 49 year old female with past medical history of HTN, right sided garcia palsy and possible TIA (negative workup in 07/04) who presented to the ED with a chief complain on 3 right occipital and frontal headache that has been worsening since day prior to admission, neck pain and right arm/leg numbness/weakness . The headache was throbbing in nature and minimally responsive to motrin and tylenol. Neck pain is sharp in nature that is worse with movement without alleviating nor worsening factors. 4-5/10 in severity. She reports RUE/RLE numbness and tingling/ weakness is intermittent lasting about 15 minutes at a time . Pt endorsed recent weight gain and also reports palpitations, slurred speech and difficulty word finding at the same time as the headache and sensation changes. She denies loss of consciousness, fevers, chills, nausea, vomiting, vision changes, or headaches that are worse on awakening . Reports she was told to stop taking her ASA due to frequent nose bleeds. Denies tobacco , alcohol and illicit drug use. CT head was completed and without any acute abnormalities noted. Blood pressure was slightly elevated with systolics to 150. Hemoglobin A1c was normal at 5.8. This morning, the patient reports being at baseline and without pathology and denies in headaches or weaknessor any sensory issues. Recent Travel: none PAST MEDICAL HISTORY: as above PAST SURGICAL HISTORY: denies FAMILY HISTORY: obesity Social History: Smoking:denies Alcohol:denies Drugs: denies Allergies No Known Allergies Allergy (Verified 02/17/19 21:11) HOME MEDICATIONS: Home Medications Medication Instructions Recorded Atorvastatin Ca [Lipitor] 40 mg PO HS #30 tablet 06/24/17 Amlodipine Besylate 5 mg PO DAILY #30 tablet 02/17/19 Amlodipine Besylate [Norvasc -] 5 mg PO DAILY #30 tablet 02/17/19 Ibuprofen 800 mg PO QID PRN #20 tablet 02/17/19 Ibuprofen 800 mg PO QID PRN #20 tablet 02/17/19 REVIEW OF SYSTEMS CONSTITUTIONAL: Absent: fever, chills, diaphoresis, generalized weakness, malaise, loss of appetite, weight change HEENT: Absent: rhinorrhea, nasal congestion, throat pain, throat swelling, difficulty swallowing, mouth swelling, ear pain, eye pain, visual changes CARDIOVASCULAR: Absent: chest pain, syncope, palpitations, irregular heart rate, lightheadedness , peripheral edema RESPIRATORY: Absent: cough, shortness of breath, dyspnea with exertion, orthopnea, wheezing, stridor, hemoptysis GASTROINTESTINAL: Absent: abdominal pain, abdominal distension, nausea, vomiting, diarrhea, constipation, melena, hematochezia GENITOURINARY: Absent: dysuria, frequency, urgency, hesitancy, hematuria, flank pain, genital pain MUSCULOSKELETAL: neck pain Absent: myalgia, arthralgia, joint swelling, back pain, SKIN: Absent: rash, itching, pallor HEMATOLOGIC/IMMUNOLOGIC: Absent: easy bleeding, easy bruising, lymphadenopathy, frequent infections ENDOCRINE: Absent: unexplained weight gain, unexplained weight loss, heat intolerance, cold intolerance NEUROLOGIC: headache, focal weakness or paresthesias Absent: dizziness, unsteady gait, seizure, mental status changes, bladder or bowel incontinence PSYCHIATRIC: Absent: anxiety, depression, suicidal or homicidal ideation, hallucinations. PHYSICAL EXAMINATION Vital Signs Period Temp Pulse Resp BP Sys/Alvarado Pulse Ox Last 24 Hr 98.2 F-98.6 F 64-72 18-20 133-149/64-73 95-99 GENERAL: Awake, alert, and fully oriented, in no acute distress. morbid Obese HEAD: Normal with no signs of trauma. EYES: Pupils equal, round and reactive to light, extraocular movements intact, sclera anicteric, conjunctiva clear. No lid lag. EARS, NOSE, THROAT: oropharynx clear without exudates. Moist mucous membranes. NECK: Normal range of motion, supple without lymphadenopathy, JVD, or masses. acanthosis nigricans with skin tags LUNGS: Breath sounds equal, clear to auscultation bilaterally. No wheezes, and no crackles. No accessory muscle use. HEART: Regular rate and rhythm, normal S1 and S2 without murmur, rub or gallop. ABDOMEN: Soft, nontender, obese abdomen, normoactive bowel sounds, no guarding, no rebound, no masses. No hepatomegaly or splenomegaly. MUSCULOSKELETAL: Normal range of motion at all joints. No bony deformities or tenderness. No CVA tenderness. UPPER EXTREMITIES: 2+ pulses, warm, well-perfused. No cyanosis. No clubbing. No peripheral edema. LOWER EXTREMITIES: 2+ pulses, warm, well-perfused. No calf tenderness. No peripheral edema. NEUROLOGICAL: Cranial nerves II-XII intact. Normal speech. motor strength 5/5 in all extremities and sensation including pinprick normal at the time PSYCHIATRIC: Cooperative. Good eye contact. Appropriate mood and affect. SKIN: Warm, dry, normal turgor, no rashes or lesions noted, normal capillary refill. CBCD WBC 7.2 K/mm3 (4.0-10.0) 09/29/19 05:30 RBC 4.23 M/mm3 (3.60-5.2) 09/29/19 05:30 Hgb 12.4 GM/dL (10.7-15.3) 09/29/19 05:30 Hct 36.1 % (32.4-45.2) 09/29/19 05:30 MCV 85.3 fl (80-96) 09/29/19 05:30 MCHC 34.2 g/dl (32.0-36.0) 09/29/19 05:30 RDW 13.6 % (11.6-15.6) 09/29/19 05:30 Plt Count 249 K/MM3 (134-434) 09/29/19 05:30 MPV 8.6 fl (7.5-11.1) 09/29/19 05:30 CMP Sodium 138 mmol/L (136-145) 09/29/19 05:30 Potassium 4.0 mmol/L (3.5-5.1) 09/29/19 05:30 Chloride 111 mmol/L (98-107) H 09/29/19 05:30 Carbon Dioxide 22 mmol/L (21-32) 09/29/19 05:30 Anion Gap 5 MMOL/L (8-16) L 09/29/19 05:30 BUN 15.2 mg/dL (7-18) 09/29/19 05:30 Creatinine 0.5 mg/dL (0.55-1.3) L 09/29/19 05:30 Random Glucose 91 mg/dL (74-106) 09/29/19 05:30 Calcium 8.0 mg/dL (8.5-10.1) L 09/29/19 05:30 Total Bilirubin 0.4 mg/dL (0.2-1) 09/29/19 05:30 AST 38 U/L (15-37) H 09/29/19 05:30 ALT 56 U/L (13-61) 09/29/19 05:30 Alkaline Phosphatase 109 U/L (45-117) 09/29/19 05:30 Total Protein 6.4 g/dl (6.4-8.2) 09/29/19 05:30 Albumin 3.0 g/dl (3.4-5.0) L 09/29/19 05:30 CARDIAC ENZYMES Creatine Kinase 132 U/L (26-192) 09/28/19 21:44 Troponin I < 0.02 ng/ml (0.00-0.05) 09/29/19 05:30 ASSESSMENT/PLAN: 49 year old female with past medical history of HTN, right sided garcia palsy and possible TIA (negative workup in 07/04) who presented to the ED with a chief complain on 3 right occipital and frontal headache that has been worsening since day prior to admission, neck pain and right arm/leg numbness/weakness . The headache was throbbing in nature and minimally responsive to motrin and tylenol. Neck pain is sharp in nature that is worse with movement without alleviating nor worsening factors. 4-5/10 in severity. She reports RUE/RLE numbness and tingling/ weakness is intermittent lasting about 15 minutes at a time . Pt endorsed recent weight gain and also reports palpitations, slurred speech and difficulty word finding at the same time as the headache and sensation changes. She denies loss of consciousness, fevers, chills, nausea, vomiting, vision changes, or headaches that are worse on awakening . Reports she was told to stop taking her ASA due to frequent nose bleeds. Denies tobacco , alcohol and illicit drug use. CT head was completed and without any acute abnormalities noted. Blood pressure was slightly elevated with systolics to 150. Hemoglobin A1c was normal at 5.8. This morning, the patient reports being at baseline and without pathology and denies in headaches or weaknessor any sensory issues. Awaiting completion of MRI brain. Monitor blood pressure, maintain normotensive range, cardiology follow-up, lipid profile reviewed and LDL 112, goal <100. Weight loss may be of benefit, goal BMI < 30.
--- NOTE | 2019-09-29 11:37 | ECHO ---
Name: OSWALDO RODRIGUEZ Exam:Adult Echocardiogram Study Date: 09/29/2019 09:25 AM Age: 49 yrs Reason For Study: LV Function Height: 59 in Weight: 193 lb BSA: 1.8 m2 MMode/2D Measurements & Calculations IVSd: 0.93 cm Ao root diam: 2.8 cm LVIDd: 4.3 cm LA dimension: 3.4 cm LVIDs: 3.2 cm LVPWd: 0.98 cm LVPWs: 1.4 cm EDV(Teich): 84.4 ml ESV(Teich): 39.7 ml LVOT diam: 2.2 cm RV S Min: 11.1 cm/sec Doppler Measurements & Calculations MV E max min: 88.4 cm/sec Ao V2 max: 151.4 cm/sec MV A max min: 71.6 cm/sec Ao max P.2 mmHg MV E/A: 1.2 MV dec time: 0.14 sec NOE(V,D): 3.1 cm2 LV V1 max P.8 mmHg TR max min: 284.3 cm/sec LV V1 max: 120.9 cm/sec TR max P.3 mmHg PA V2 max: 104.7 cm/sec Med Peak E' Min: 7.2 cm/sec PA max P.4 mmHg Med E/e': 12.2 Lat Peak E' Min: 9.7 cm/sec Lat E/e': 9.1 Procedure A two-dimensional transthoracic echocardiogram with color flow and Doppler was performed. The patient was in normal sinus rhythm during the exam. Left Ventricle The left ventricle is normal in size. Left ventricular systolic function is normal. Ejection Fraction = 55- 60%. The left ventricular wall motion is normal. Right Ventricle The right ventricle is normal size. The right ventricular systolic function is normal. Atria The left atrial size is normal. Right atrial size is normal. Mitral Valve The mitral valve is normal. There is mild mitral regurgitation. Tricuspid Valve The tricuspid valve is normal. There is mild tricuspid regurgitation. Right ventricular systolic pres sure is elevated at 44 mmhg. There is mild pulmonary hypertension. Aortic Valve The aortic valve is normal in structure and function. No aortic regurgitation is present. Pulmonic Valve The pulmonic valve is not well seen, but is grossly normal. Trace pulmonic valvular regurgitation. Great Vessels The aortic root is normal size. Pericardium/Pleura There is no pericardial effusion. Interpretation Summary Left ventricular systolic function is normal. Ejection Fraction = 55-60%. The right ventricular systolic function is normal. There is mild mitral regurgitation. There is mild tricuspid regurgitation. Right ventricular systolic pressure is elevated at 44 mmhg. Trace pulmonic valvular regurgitation. There is no pericardial effusion. MD Drew Tejada 09/29/2019 11:36 AM
--- NOTE | 2019-09-29 12:07 | CONSULT ---
Admitting History and Physical - Primary Care Physician PCP: Eliseo Romeo - Admission History of Present Illness: 49 year old female with past medical history of HTN, right sided garcia palsy and possible TIA (negative workup in 07/04) who presented to the ED with a chief complain on 3 right occipital and frontal headache that has been worsening , with neck pain and right arm/leg numbness/weakness Seen 06/24/19 Speech,language, swallowing, cognition judged to be WNL. History Source: Patient Limitations to Obtaining History: No Limitations, Language Barrier - Past Medical History Cardiovascular: Yes: HTN ...LMP: 06/23/17 Endocrine: Yes: Diabetes Mellitus (Pre-diabetes) - Smoking History Smoking history: Never smoked Have you smoked in the past 12 months: No Aproximately how many cigarettes per day: 0 - Alcohol/Substance Use Hx Alcohol Use: No - Social History ADL: Independent History of Recent Travel: No History - Admission Reason For Visit: HEADACHE - Diagnostics CT Scan: Report Reviewed ((-)) MRI: Report Reviewed ((-)) - General Mental Status: Alert and Oriented, Awake and Alert, Able to Follow Commands Attention: Intact Ability to Follow Directions: Excellent Head/Neck Control: WFL - Hearing Hearing: Normal Speech Evaluation - Communication Primary Language: GE[place]GI[place] Communication: Yes: Within Normal Limits Oral Expression Ability: Yes: No Impairment - Speech Production Able to Make Needs Known: Yes: WNL Intelligibility: Yes: WNL - Speech Characteristics Voice Loudness: Normal Voice Pitch: Yes: Normal Voice Phonatory-based Quality: Yes: Normal Speech Pattern: Normal Nasal Resonance: Normal Articulation: Yes: Precise - Language/Auditory Comprehension Follows: Yes: 2 Stage Simple Commands Observation: Able to respond to yes/no queries: Yes, Yes/No Confusion: No, Comprehends Conversational Speech: Yes - Language/Verbal Expression Able to Respond to Simple Queries: Yes: WNL Able to Communicate Wants and Needs: Yes: WNL Functional Communication Status: Yes: WNL - Memory/Perception ferry terminal agent Memory: Yes: WNL Short Term Memory: Yes: WNL - Swallow Evaluation/Bedside Assessment Current Nutritional Intake: Dysphagia Pureed, Thin Liquids Oral Secretions: Yes: WFL Dentition: Yes: Adequate, Missing Teeth Facial Symmetry at Rest: Symmetrical Facial Symmetry on Retraction: Symmetrical Facial Movement: Controlled Sensation: Normal Against Resistance Opening: Normal Against Resistance Closing: Normal Pucker Lips: Normal Smile: Normal Lingual Movement: Normal, Symmetric Lingual Speed of Movement: Normal Lingual Movement Strgth Against Opposition: Normal Lingual Movement Characteristics: Normal Bite Reflex: Present Velopharyngeal Movement: Normal Laryngeal Elevation: WFL Laryngeal Movement: Able to Palpate Rate of Intake: WFL Bolus Size: WFL Labial Seal: WFL Chewing: WFL Oral Prep Time: WFL A-P Transit: WFL Pocketing: None Timing of Swallow: WFL Coughing/Throat Clear: No Change in Voice: No Recommendations - Speech Evaluation, Impression/Plan Impression: Speech, swallow, l;anguage, cognition intact. Headache is gone - Dysphagia Impressions/Plan Swallowing Skills: WFL Dysphagia Impressions: No Impairment *Silent aspiration: cannot be R/O at bedside - Recommendations Diet Consistency: Regular Medication Administration: Whole with water Liquids: Thin Liquids
--- NOTE | 2019-09-29 13:43 | PN ---
Teaching Attending Note Name of Resident: Kaiser Tyson ATTENDING PHYSICIAN STATEMENT I saw and evaluated the patient. I reviewed the resident's note and discussed the case with the resident. I agree with the resident's findings and plan as documented with exceptions below. SUBJECTIVE: Patient seen and examined, no complaints, eager to go home. OBJECTIVE: Vital Signs Period Temp Pulse Resp BP Sys/Alvarado Pulse Ox Last 24 Hr 98.2 F-98.6 F 64-72 18-20 133-149/64-73 95-99 Intake & Output 09/26/19 09/27/19 09/28/19 09/29/19 23:59 23:59 23:59 23:59 Weight 193 lb General: sitting in stretcher no acute distress Neck: soft, supple, no JVD Chest: CTAb, no rales or wheezing Abdomen:Soft, obese, NT Extremities: no pedal edema Neuro: AAOx3, mild right nasaolabial fold flattening, power 5/5, sensation intact to light touch, facial symmetry, tongue midline, gait normal, speech normal Home Medications Medication Instructions Recorded Atorvastatin Ca [Lipitor] 40 mg PO HS #30 tablet 06/24/17 Amlodipine Besylate 5 mg PO DAILY #30 tablet 02/17/19 Ibuprofen 800 mg PO QID PRN #20 tablet 02/17/19 Active Medications Sodium Chloride (Normal Saline -) 1,000 mls @ 42 mls/hr IV ASDIR NANETTE Last Admin: 09/28/19 23:23 Dose: 42 mls/hr Laboratory Results - last 24 hr 09/28/19 09/28/19 09/28/19 21:44 21:44 21:44 WBC 7.4 RBC 4.54 Hgb 12.9 Hct 39.1 MCV 86.2 MCH 28.4 MCHC 33.0 RDW 13.6 Plt Count 261 MPV 8.5 Absolute Neuts (auto) 4.1 Neutrophils % 55.5 Lymphocytes % 34.4 Monocytes % 5.9 Eosinophils % 3.2 Basophils % 1.0 Nucleated RBC % 0 PT with INR 12.10 INR 1.03 PTT (Actin FS) 33.5 Sodium 138 Potassium 4.4 Chloride 109 H Carbon Dioxide 24 Anion Gap 5 L BUN 17.9 Creatinine 0.7 Est GFR (CKD-EPI)AfAm 117.91 Est GFR (CKD-EPI)NonAf 101.74 Random Glucose 97 Hemoglobin A1c % Calcium 8.4 L Phosphorus Magnesium Total Bilirubin 0.3 AST 43 H ALT 61 Alkaline Phosphatase 123 H Creatine Kinase 132 Troponin I 0.02 Total Protein 7.1 Albumin 3.3 L Triglycerides Cholesterol 186 Total LDL Cholesterol HDL Cholesterol TSH Urine Color Urine Appearance Urine pH Ur Specific [place] Urine Protein Urine Glucose (UA) Urine Ketones Urine Blood Urine Nitrite Urine Bilirubin Urine Urobilinogen Ur Leukocyte Esterase Blood Type Antibody Screen 09/28/19 09/28/19 09/28/19 21:44 21:44 21:44 WBC RBC Hgb Hct MCV MCH MCHC RDW Plt Count MPV Absolute Neuts (auto) Neutrophils % Lymphocytes % Monocytes % Eosinophils % Basophils % Nucleated RBC % PT with INR INR PTT (Actin FS) Sodium Potassium Chloride Carbon Dioxide Anion Gap BUN Creatinine Est GFR (CKD-EPI)AfAm Est GFR (CKD-EPI)NonAf Random Glucose Hemoglobin A1c % Calcium Phosphorus Magnesium Total Bilirubin AST ALT Alkaline Phosphatase Creatine Kinase Troponin I Total Protein Albumin Triglycerides 265 H Cholesterol Total LDL Cholesterol 112 H HDL Cholesterol 43 TSH Urine Color Urine Appearance Urine pH Ur Specific [place] Urine Protein Urine Glucose (UA) Urine Ketones Urine Blood Urine Nitrite Urine Bilirubin Urine Urobilinogen Ur Leukocyte Esterase Blood Type O POSITIVE Antibody Screen Negative 09/29/19 09/29/19 09/29/19 01:37 01:42 05:30 WBC 7.2 RBC 4.23 Hgb 12.4 Hct 36.1 MCV 85.3 MCH 29.2 MCHC 34.2 RDW 13.6 Plt Count 249 MPV 8.6 Absolute Neuts (auto) 3.7 Neutrophils % 51.6 Lymphocytes % 38.6 Monocytes % 5.1 Eosinophils % 3.7 Basophils % 1.0 Nucleated RBC % 0 PT with INR INR PTT (Actin FS) Sodium Potassium Chloride Carbon Dioxide Anion Gap BUN Creatinine Est GFR (CKD-EPI)AfAm Est GFR (CKD-EPI)NonAf Random Glucose Hemoglobin A1c % 5.8 Calcium Phosphorus Magnesium Total Bilirubin AST ALT Alkaline Phosphatase Creatine Kinase Troponin I Total Protein Albumin Triglycerides Cholesterol Total LDL Cholesterol HDL Cholesterol TSH Urine Color Yellow Urine Appearance Clear Urine pH 6.0 Ur Specific [place] 1.015 Urine Protein Negative Urine Glucose (UA) Negative Urine Ketones Negative Urine Blood Negative Urine Nitrite Negative Urine Bilirubin Negative Urine Urobilinogen 0.2 Ur Leukocyte Esterase Negative Blood Type Antibody Screen 09/29/19 09/29/19 05:30 05:30 WBC RBC Hgb Hct MCV MCH MCHC RDW Plt Count MPV Absolute Neuts (auto) Neutrophils % Lymphocytes % Monocytes % Eosinophils % Basophils % Nucleated RBC % PT with INR INR PTT (Actin FS) Sodium 138 Potassium 4.0 Chloride 111 H Carbon Dioxide 22 Anion Gap 5 L BUN 15.2 Creatinine 0.5 L Est GFR (CKD-EPI)AfAm 131.72 Est GFR (CKD-EPI)NonAf 113.65 Random Glucose 91 Hemoglobin A1c % 6.0 Calcium 8.0 L Phosphorus 3.3 Magnesium 2.2 Total Bilirubin 0.4 AST 38 H ALT 56 Alkaline Phosphatase 109 Creatine Kinase Troponin I < 0.02 Total Protein 6.4 Albumin 3.0 L Triglycerides Cholesterol Total LDL Cholesterol HDL Cholesterol TSH 2.42 Urine Color Urine Appearance Urine pH Ur Specific [place] Urine Protein Urine Glucose (UA) Urine Ketones Urine Blood Urine Nitrite Urine Bilirubin Urine Urobilinogen Ur Leukocyte Esterase Blood Type Antibody Screen MRI brain/2D echo/Carotid duplex results noted ASSESSMENT AND PLAN: 49 yof with PMHx of HTN, HLD, garcia's palsy, ?TIA (neg w/u in 06/2017) admitted with headache/RUE/RLE tingling/numbness -Headache/RUE/RLE tingling/numbness, resolved -Garcia's palsy -HTN -HLD Plan: Symptoms resolved Exam non concerning MRI brain/2D echo/carotid duplex neg, Tolerating PO well As discussed with PCP, no h/o lupus Continue home meds Dc home today discussed with patient.
--- NOTE | 2019-09-29 18:23 | DS ---
Physical Exam: SUBJECTIVE: Patient seen and examined. Symptoms improved OBJECTIVE: Vital Signs Period Temp Pulse Resp BP Sys/Alvarado Pulse Ox Last 24 Hr 98.2 F-98.6 F 64-72 18-20 133-149/64-73 95-99 PHYSICAL EXAM GENERAL: A&O x3, NAD. Obese HEAD: NC/AT EYES: extraocular movements intact, sclera anicteric, conjunctiva clear. ENT: Ears normal, nares patent, oropharynx clear without exudates, moist mucous membranes. NECK: Trachea midline, full range of motion, supple. LUNGS: Breath sounds equal, clear to auscultation bilaterally, no wheezes, no crackles, no accessory muscle use. HEART: Regular rate and rhythm, S1, S2 without murmur, rub or gallop. ABDOMEN: Soft, nontender, nondistended, normoactive bowel sounds, no guarding, no rebound. EXTREMITIES: 2+ pulses, warm, well-perfused, no edema. NEUROLOGICAL: Cranial nerves II through XII grossly intact. Normal speech, normal gait. PSYCH: Normal mood, normal affect. SKIN: Warm, dry, normal turgor, no rashes or lesions noted. LABS Laboratory Results - last 24 hr 09/28/19 09/28/19 09/28/19 21:44 21:44 21:44 WBC 7.4 RBC 4.54 Hgb 12.9 Hct 39.1 MCV 86.2 MCH 28.4 MCHC 33.0 RDW 13.6 Plt Count 261 MPV 8.5 Absolute Neuts (auto) 4.1 Neutrophils % 55.5 Lymphocytes % 34.4 Monocytes % 5.9 Eosinophils % 3.2 Basophils % 1.0 Nucleated RBC % 0 PT with INR 12.10 INR 1.03 PTT (Actin FS) 33.5 Sodium 138 Potassium 4.4 Chloride 109 H Carbon Dioxide 24 Anion Gap 5 L BUN 17.9 Creatinine 0.7 Est GFR (CKD-EPI)AfAm 117.91 Est GFR (CKD-EPI)NonAf 101.74 Random Glucose 97 Hemoglobin A1c % Calcium 8.4 L Phosphorus Magnesium Total Bilirubin 0.3 AST 43 H ALT 61 Alkaline Phosphatase 123 H Creatine Kinase 132 Troponin I 0.02 Total Protein 7.1 Albumin 3.3 L Triglycerides Cholesterol 186 Total LDL Cholesterol HDL Cholesterol TSH Urine Color Urine Appearance Urine pH Ur Specific [place] Urine Protein Urine Glucose (UA) Urine Ketones Urine Blood Urine Nitrite Urine Bilirubin Urine Urobilinogen Ur Leukocyte Esterase Blood Type Antibody Screen 09/28/19 09/28/19 09/28/19 21:44 21:44 21:44 WBC RBC Hgb Hct MCV MCH MCHC RDW Plt Count MPV Absolute Neuts (auto) Neutrophils % Lymphocytes % Monocytes % Eosinophils % Basophils % Nucleated RBC % PT with INR INR PTT (Actin FS) Sodium Potassium Chloride Carbon Dioxide Anion Gap BUN Creatinine Est GFR (CKD-EPI)AfAm Est GFR (CKD-EPI)NonAf Random Glucose Hemoglobin A1c % Calcium Phosphorus Magnesium Total Bilirubin AST ALT Alkaline Phosphatase Creatine Kinase Troponin I Total Protein Albumin Triglycerides 265 H Cholesterol Total LDL Cholesterol 112 H HDL Cholesterol 43 TSH Urine Color Urine Appearance Urine pH Ur Specific [place] Urine Protein Urine Glucose (UA) Urine Ketones Urine Blood Urine Nitrite Urine Bilirubin Urine Urobilinogen Ur Leukocyte Esterase Blood Type O POSITIVE Antibody Screen Negative 09/29/19 09/29/19 09/29/19 01:37 01:42 05:30 WBC 7.2 RBC 4.23 Hgb 12.4 Hct 36.1 MCV 85.3 MCH 29.2 MCHC 34.2 RDW 13.6 Plt Count 249 MPV 8.6 Absolute Neuts (auto) 3.7 Neutrophils % 51.6 Lymphocytes % 38.6 Monocytes % 5.1 Eosinophils % 3.7 Basophils % 1.0 Nucleated RBC % 0 PT with INR INR PTT (Actin FS) Sodium Potassium Chloride Carbon Dioxide Anion Gap BUN Creatinine Est GFR (CKD-EPI)AfAm Est GFR (CKD-EPI)NonAf Random Glucose Hemoglobin A1c % 5.8 Calcium Phosphorus Magnesium Total Bilirubin AST ALT Alkaline Phosphatase Creatine Kinase Troponin I Total Protein Albumin Triglycerides Cholesterol Total LDL Cholesterol HDL Cholesterol TSH Urine Color Yellow Urine Appearance Clear Urine pH 6.0 Ur Specific [place] 1.015 Urine Protein Negative Urine Glucose (UA) Negative Urine Ketones Negative Urine Blood Negative Urine Nitrite Negative Urine Bilirubin Negative Urine Urobilinogen 0.2 Ur Leukocyte Esterase Negative Blood Type Antibody Screen 09/29/19 09/29/19 05:30 05:30 WBC RBC Hgb Hct MCV MCH MCHC RDW Plt Count MPV Absolute Neuts (auto) Neutrophils % Lymphocytes % Monocytes % Eosinophils % Basophils % Nucleated RBC % PT with INR INR PTT (Actin FS) Sodium 138 Potassium 4.0 Chloride 111 H Carbon Dioxide 22 Anion Gap 5 L BUN 15.2 Creatinine 0.5 L Est GFR (CKD-EPI)AfAm 131.72 Est GFR (CKD-EPI)NonAf 113.65 Random Glucose 91 Hemoglobin A1c % 6.0 Calcium 8.0 L Phosphorus 3.3 Magnesium 2.2 Total Bilirubin 0.4 AST 38 H ALT 56 Alkaline Phosphatase 109 Creatine Kinase Troponin I < 0.02 Total Protein 6.4 Albumin 3.0 L Triglycerides Cholesterol Total LDL Cholesterol HDL Cholesterol TSH 2.42 Urine Color Urine Appearance Urine pH Ur Specific [place] Urine Protein Urine Glucose (UA) Urine Ketones Urine Blood Urine Nitrite Urine Bilirubin Urine Urobilinogen Ur Leukocyte Esterase Blood Type Antibody Screen HOSPITAL COURSE: 49F with PMHx of HTN, HLD, garcia's palsy, ?TIA(neg w/u in 06/2017) presenting to complaint of headache/RUE/RLE tingling/numbness admitted to tele obs for TIA r/ o. CTH showing b/l punctate cerebral calcification(suggestive of previous inflamm/infection). Echo(09/29/19) showing LVEF 55-60%, RVSP ~44mmHg. Carotid duplex neg for stenosis. MRI neg for acute/subacute infarct. HbA1c 5.8. Had previous ASA but had it stopped dt recurrent epistaxis. Neuro rec goal LDL <100 , and BMI <30. S&S did not note any impairments. PCP contacted and no h/o Lupus noted. Pt stable for d/c home w/o needs. Date of Admission:09/29/19 Date of Discharge: 09/29/19 Minutes to complete discharge: 20 Discharge Summary Problems reviewed: Yes Reason For Visit: HEADACHE Condition: Stable - Instructions Diet, Activity, Other Instructions: You were evaluated in the hospital for severe Right-sided headaches. Your symptoms improved after receiving Tylenol. Imaging of the head, including brain MRI did not show any signs of stroke. The imaging of the large vessels of the neck were normal. Imaging of the heart showed normal strength but increased pressure of Right side of the heart. The labwork was unremarkable. It is important to maintain your blood pressure at a normal range, have a low fat, low salt diet, and drink plenty of water. Medications - resume your previously prescribed home medications Follow-up with the physicians below within 1-2 weeks: - Neurologist(Dr Alfred Rivera): to discuss your headaches - PCP(Yasmin Dowell): to discuss your recent hospitalization Please seek immediate medical evaluation or go to the Emergency Room if you experience: - severe, unresolving headaches - fever, vomiting Referrals: Alfred Rivera MD [Staff Physician] - Maryanne Hoffman MD [Primary Care Provider] - Disposition: HOME - Home Medications Comprehensive Discharge Medication List: Ambulatory Orders Atorvastatin Ca [Lipitor] 40 mg PO HS #30 tablet 06/24/17 Amlodipine Besylate 5 mg PO DAILY #30 tablet 02/17/19 This patient is new to me today: No Emergency Visit: No Critical Care patient: No - Discharge Referral Referred to [facility] Med [facility].C[facility] No ATTENDING PHYSICIAN STATEMENT I saw and evaluated the patient. I reviewed the resident's note and discussed the case with the resident. I agree with the resident's findings and plan as documented. SUBJECTIVE: OBJECTIVE: ASSESSMENT AND PLAN:
== END 2019-09-29 15:35 | disposition home or self-care (01) | DRG 54 ==
LOC: JER 19:14 → JERBED 23:44 → OBSVTOIN 09-29 03:09
PROVIDERS: ADMIT Internal Medicine; ATTEND Hospitalist
DX: R51 Headache (principal); I10 Essential (primary) hypertension; G51.0 Bell's palsy; M32.9 Systemic lupus erythematosus, unspecified; E78.5 Hyperlipidemia, unspecified; M54.2 Cervicalgia; E88.09 Other disorders of plasma-protein metabolism, not elsewhere classified; R20.0 Anesthesia of skin; E46 Unspecified protein-calorie malnutrition; E66.9 Obesity, unspecified; Z68.39 Body mass index [BMI] 39.0-39.9, adult; Z86.73 Personal history of transient ischemic attack (TIA), and cerebral infarction without residual deficits
CPT/HCPCS: 36415; 70450-TC; 70551-TC; 80053; 81003; 82465; 82550; 83036; 83718; 83721; 83735; 84100; 84443; 84478; 84484; 85025; 85610; 85730; 86850; 86900; 86901; 93005; 93010; 93306-TC; 93880-TC; 99284-25; G0378; J0131; J7030

== ENCOUNTER 2021-06-14 11:18 | Emergency (ER) | payer SELFPAY ==
[2021-06-14 11:46] VITALS: BP 156/68; PULSE 88; TEMP 98.9; BMI 41.0
== END 2021-06-14 12:51 | disposition home or self-care (01) ==
LOC: JER 11:18
DX: R05 Cough (principal); Z11.52 Encounter for screening for COVID-19
CPT/HCPCS: 71046-TC-FY; 99284-25; C9803; U0003; U0005

== ENCOUNTER 2023-04-14 14:52 | Inpatient (IN) | payer OTHER ==
[2023-04-14] MEDS ORDERED: ACETAMINOPHEN 1000 MG/100 ML BAG IVPB ONE (15:33)
[2023-04-14] MEDS ORDERED: MAG HYDROX/AL HYDROX/SIMETH 30 ML UNIT-DOSE CUP PO ONE (15:33)
[2023-04-14] MEDS ORDERED: SODIUM CHLORIDE 0.9% 500 ML INFUS.BAG IV ONE (15:33)
[2023-04-14] MEDS ORDERED: FAMOTIDINE 20 MG/50 ML IVPB 20 MG/50 ML MG IVPB ONE ×2 (15:33→15:53)
[2023-04-14] MEDS ORDERED: MAG HYDROX/AL HYDROX/SIMETH 30 ML UNIT-DOSE CUP ONE (15:53)
[2023-04-14] MEDS ORDERED: ACETAMINOPHEN INJECTION 100 ML IVPB ONE (15:53)
[2023-04-14 16:49] LABS: BASO % 0.9 % (0-2.0); EOS % 2.7 % (0-4.5); HEMATOCRIT 39.8 % (32.4-45.2); HEMOGLOBIN 13.6 GM/dL (10.7-15.3); LYMPH % 31.5 % (8-40); MCH 28.9 pg (25.7-33.7); MCHC 34.1 g/dl (32.0-36.0); MEAN CELL VOLUME 84.8 fl (80-96); MEAN PLT VOLUME 8.6 fl (7.5-11.1); NEUT % 59.9 % (42.8-82.8); PLATELET COUNT 327 10^3/uL (134-434); RDW 13.8 % (11.6-15.6); WHITE BLOOD COUNT 7.6 K/mm3 (4.0-10.0)
[2023-04-14 16:55] LABS: INR 1.06 (0.83-1.09); PROTHROMBIN TIME (PATIENT) 12.3 SEC (9.7-13.0)
[2023-04-14 16:58] LABS: ACTIVATED PTT 31.6 SECONDS (25.2-36.5)
[2023-04-14 17:10] LABS: POTASSIUM 5.4 mmol/L (3.5-5.1)
[2023-04-14 17:12] LABS: ALBUMIN 3.7 g/dl (3.4-5.0); CALCIUM 9.4 mg/dL (8.5-10.1)
[2023-04-14 17:13] LABS: BLOOD UREA NITROGEN 22.6 mg/dL (7-18)
[2023-04-14 17:15] LABS: CREATININE 0.7 mg/dL (0.55-1.3)
[2023-04-14 17:17] LABS: BILIRUBIN,TOTAL 0.4 mg/dL (0.2-1); TOT PROT 8.3 g/dl (6.4-8.2)
[2023-04-14] MEDS ORDERED: LACTATED RINGERS SOLUTION 1,000 ML/1,000 ML INFUS.BAG IV SCH (17:30)
[2023-04-14] MEDS ORDERED: ONDANSETRON 4 MG/2 ML VIAL IVPUSH PRN (20:06)
[2023-04-14] MEDS ORDERED: DEXTROSE 5%-LACTATED RINGERS 1,000 ML IV SCH ×2 (20:15→20:48)
[2023-04-14] MEDS: ATORVASTATIN CA 20 MG TABLET (FP) PO SCH (22:47)
[2023-04-14] MEDS: LACTATED RINGERS SOLUTION 1,000 ML/1,000 ML INFUS.BAG IV SCH (22:47)
[2023-04-14] MEDS: KETOROLAC TROMETHAMINE 30 MG/1 ML VIAL IVPUSH PRN (22:51)
[2023-04-14 23:07] VITALS: BMI 43.2
[2023-04-15 01:54] LABS: CALCIUM 8.9 mg/dL (8.5-10.1)
[2023-04-15 01:55] LABS: ALBUMIN 3.5 g/dl (3.4-5.0); BLOOD UREA NITROGEN 18.2 mg/dL (7-18)
[2023-04-15 01:58] LABS: CREATININE 0.5 mg/dL (0.55-1.3)
[2023-04-15 01:59] LABS: TOT PROT 7.4 g/dl (6.4-8.2)
[2023-04-15 02:00] LABS: BILIRUBIN,TOTAL 0.4 mg/dL (0.2-1)
[2023-04-15 07:21] LABS: BASO % 1.1 % (0-2.0); EOS % 3.4 % (0-4.5); HEMATOCRIT 36.7 % (32.4-45.2); HEMOGLOBIN 12.9 GM/dL (10.7-15.3); MCH 29.6 pg (25.7-33.7); MCHC 35.2 g/dl (32.0-36.0); MEAN CELL VOLUME 84.1 fl (80-96); MEAN PLT VOLUME 9.1 fl (7.5-11.1); MONO % 6.2 % (3.8-10.2); NEUT % 50.3 % (42.8-82.8); PLATELET COUNT 278 10^3/uL (134-434); RBC 4.37 M/mm3 (3.60-5.2); RDW 13.6 % (11.6-15.6); WHITE BLOOD COUNT 6.5 K/mm3 (4.0-10.0)
[2023-04-15 07:26] LABS: POTASSIUM 4.2 mmol/L (3.5-5.1)
[2023-04-15 07:27] LABS: CALCIUM 8.9 mg/dL (8.5-10.1)
[2023-04-15 07:28] LABS: MAGNESIUM 2.1 mg/dL (1.8-2.4)
[2023-04-15 07:29] LABS: BLOOD UREA NITROGEN 15.7 mg/dL (7-18)
[2023-04-15 07:30] LABS: ALBUMIN 3.2 g/dl (3.4-5.0)
[2023-04-15 07:32] LABS: CREATININE 0.6 mg/dL (0.55-1.3)
[2023-04-15 07:33] LABS: PHOSPHOROUS 3.9 mg/dL (2.5-4.9)
[2023-04-15] MEDS: KETOROLAC TROMETHAMINE 30 MG/1 ML VIAL IVPUSH PRN ×3 (07:40→18:20)
[2023-04-15 07:45] LABS: BILIRUBIN,TOTAL 0.4 mg/dL (0.2-1)
[2023-04-15] MEDS: PANTOPRAZOLE 40 MG TABLET PO SCH (09:38)
[2023-04-15] MEDS: HYDROCHLOROTHIAZIDE 25 MG TABLET (FP) PO SCH (09:39)
[2023-04-15] MEDS: amLODIPine BESYLATE 5 MG TABLET (FP) PO SCH (09:39)
[2023-04-15] MEDS ORDERED: CEFTRIAXONE 1 GM in DEXTROSE 5%-WATER - 50 ML IVPB SCH (10:00)
[2023-04-15] MEDS ORDERED: ENOXAPARIN NA (PORCINE) 40 MG/0.4 ML DISP.SYRIN SQ SCH (10:00)
[2023-04-15] MEDS: CEFTRIAXONE 1 GM in DEXTROSE 5%-WATER - 50 ML IVPB SCH (22:05)
[2023-04-15] MEDS: ATORVASTATIN CA 20 MG TABLET (FP) PO SCH (22:06)
[2023-04-15] MEDS: LACTATED RINGERS SOLUTION 1,000 ML/1,000 ML INFUS.BAG IV SCH (22:06)
[2023-04-16] MEDS: KETOROLAC TROMETHAMINE 30 MG/1 ML VIAL IVPUSH PRN (01:06)
[2023-04-16 07:45] LABS: BASO % 1.2 % (0-2.0); EOS % 3.7 % (0-4.5); HEMATOCRIT 36.5 % (32.4-45.2); HEMOGLOBIN 12.9 GM/dL (10.7-15.3); LYMPH % 32.4 % (8-40); MCH 29.4 pg (25.7-33.7); MCHC 35.4 g/dl (32.0-36.0); MEAN CELL VOLUME 83.3 fl (80-96); MEAN PLT VOLUME 8.9 fl (7.5-11.1); NEUT % 56.7 % (42.8-82.8); PLATELET COUNT 275 10^3/uL (134-434); RBC 4.38 M/mm3 (3.60-5.2); RDW 13.2 % (11.6-15.6); WHITE BLOOD COUNT 6.7 K/mm3 (4.0-10.0)
[2023-04-16 07:55] LABS: POTASSIUM 3.8 mmol/L (3.5-5.1)
[2023-04-16 07:59] LABS: ALBUMIN 3.2 g/dl (3.4-5.0); BLOOD UREA NITROGEN 14.1 mg/dL (7-18)
[2023-04-16 08:02] LABS: CREATININE 0.7 mg/dL (0.55-1.3)
[2023-04-16 08:03] LABS: BILIRUBIN,TOTAL 0.6 mg/dL (0.2-1); TOT PROT 7.1 g/dl (6.4-8.2)
[2023-04-16] MEDS ORDERED: MIDAZOLAM HCL 2 MG/2 ML SINGLE DOSE VIAL ONE (09:31)
[2023-04-16] MEDS ORDERED: LIDOCAINE HCL/PF 2% SDV 5ML VIAL ONE (09:31)
[2023-04-16] MEDS ORDERED: SUCCINYLCHOLINE CHLORIDE 200 MG/10 ML SYRINGE ONE (09:31)
[2023-04-16] MEDS ORDERED: PROPOFOL 20 ML ONE (09:31)
[2023-04-16] MEDS ORDERED: ROCURONIUM BROMIDE 50 MG/5 ML SYRINGE ONE (09:31)
[2023-04-16] MEDS ORDERED: ACETAMINOPHEN 1000 MG/100 ML BAG IVPB PRN ×2 (10:24→14:07)
[2023-04-16] MEDS ORDERED: morphine SULFATE 4 MG/ML VIAL IVPUSH PRN ×2 (10:25→14:07)
[2023-04-16] MEDS ORDERED: BUPIVACAINE HCL/PF 0.25% (2.5MG/ML) 10 ML VIAL ONE (11:05)
[2023-04-16] MEDS ORDERED: DEXAMETHASONE SOD PHOSPHATE 4 MG/1 ML VIAL ONE (11:35)
[2023-04-16] MEDS ORDERED: ONDANSETRON 4 MG/2 ML VIAL ONE (11:35)
[2023-04-16] MEDS ORDERED: KETOROLAC TROMETHAMINE 30 MG/1 ML VIAL ONE (11:35)
[2023-04-16] MEDS ORDERED: cefOXitin SODIUM 2 GM VIAL (RESTRICTED TO ID) IVPB ONE ×2 (11:47)
[2023-04-16] MEDS ORDERED: BUPIVACAINE HCL/PF 0.25% (2.5MG/ML) 10 ML VIAL IJ ONE (11:48)
[2023-04-16] MEDS ORDERED: ONDANSETRON 4 MG/2 ML VIAL IVPUSH PRN ×3 (13:01→14:07)
[2023-04-16] MEDS ORDERED: PROMETHAZINE HCL 25 MG/1 ML VIAL IVPB PRN ×2 (13:01→14:07)
[2023-04-16] MEDS ORDERED: ACETAMINOPHEN 1000 MG/100 ML BAG IVPB ONE (13:01)
[2023-04-16] MEDS ORDERED: LACTATED RINGERS SOLUTION 1,000 ML IV SCH ×2 (13:15→14:07)
[2023-04-16] MEDS ORDERED: KETOROLAC TROMETHAMINE 30 MG/1 ML VIAL IVPUSH PRN (14:07)
[2023-04-16] MEDS ORDERED: ACETAMINOPHEN INJECTION 100 ML IVPB ONE (14:12)
[2023-04-16] MEDS: amLODIPine BESYLATE 5 MG TABLET (FP) PO SCH (15:28)
[2023-04-16] MEDS: HYDROCHLOROTHIAZIDE 25 MG TABLET (FP) PO SCH (15:28)
[2023-04-16] MEDS: PANTOPRAZOLE 40 MG TABLET PO SCH (15:28)
[2023-04-16] MEDS: CEFTRIAXONE 1 GM in DEXTROSE 5%-WATER - 50 ML IVPB SCH (15:28)
[2023-04-16 20:20] VITALS: RESP 18
[2023-04-16] MEDS ORDERED: ATORVASTATIN CA 20 MG TABLET (FP) PO SCH (22:00)
[2023-04-17 01:48] VITALS: TEMP 97.7
[2023-04-17 06:02] VITALS: BP 157/93; PULSE 59
[2023-04-17 08:16] LABS: BASO % 0.2 % (0-2.0); HEMOGLOBIN 13.7 GM/dL (10.7-15.3); LYMPH % 10.1 % (8-40); MCH 28.7 pg (25.7-33.7); MCHC 34.1 g/dl (32.0-36.0); MEAN CELL VOLUME 84.1 fl (80-96); MEAN PLT VOLUME 8.9 fl (7.5-11.1); MONO % 3.1 % (3.8-10.2); NEUT % 86.6 % (42.8-82.8); PLATELET COUNT 323 10^3/uL (134-434); RBC 4.76 M/mm3 (3.60-5.2); RDW 13.9 % (11.6-15.6); WHITE BLOOD COUNT 12.6 K/mm3 (4.0-10.0)
[2023-04-17 08:40] LABS: POTASSIUM 4.4 mmol/L (3.5-5.1)
[2023-04-17 08:55] LABS: CALCIUM 9.5 mg/dL (8.5-10.1)
[2023-04-17 08:56] LABS: ALBUMIN 3.5 g/dl (3.4-5.0); BLOOD UREA NITROGEN 19.8 mg/dL (7-18)
[2023-04-17 08:59] LABS: CREATININE 0.9 mg/dL (0.55-1.3)
[2023-04-17 09:01] LABS: BILIRUBIN,TOTAL 0.6 mg/dL (0.2-1)
[2023-04-17] MEDS ORDERED: PANTOPRAZOLE 40 MG TABLET PO SCH (10:00)
[2023-04-17] MEDS ORDERED: amLODIPine BESYLATE 5 MG TABLET (FP) PO SCH (10:00)
[2023-04-17] MEDS ORDERED: HYDROCHLOROTHIAZIDE 25 MG TABLET (FP) PO SCH (10:00)
== END 2023-04-17 13:20 | disposition home or self-care (01) | DRG 263 ==
LOC: JER 14:52 → JERBED 19:16 → J7W 20:12 → J8W 04-16 15:23
PROVIDERS: ADMIT Internal Medicine; ATTEND Nurse Practitioner Acute Care
PROC: 0FT44ZZ Resection of Gallbladder, Percutaneous Endoscopic Approach (ICD-10-PCS; principal; 2023-04-16 13:15)
DX: K80.00 Calculus of gallbladder with acute cholecystitis without obstruction (principal); I10 Essential (primary) hypertension; E78.5 Hyperlipidemia, unspecified; K21.9 Gastro-esophageal reflux disease without esophagitis; E66.01 Morbid (severe) obesity due to excess calories; Z68.41 Body mass index [BMI] 40.0-44.9, adult; K82.1 Hydrops of gallbladder
CPT/HCPCS: 36415; 76705-TC; 80053; 80061; 82962; 83690; 83735; 84100; 84703; 85025; 85610; 85730; 86850; 86900; 86901; 88304-TC; 93005; 93010; 94760; 99285-25; C9803-CS; U0003; U0005

== ENCOUNTER → 2023-07-01 | Day surgery (SDC) | payer OTHER | END | disposition home or self-care (01) | LOC: FMAMMOTONE 10:22 | PROVIDERS: ATTEND Surgery | PROC: 0HBT3ZX Excision of Right Breast, Percutaneous Approach, Diagnostic (ICD-10-PCS; principal; 2023-07-01) | DX: N60.31 Fibrosclerosis of right breast (principal); N64.89 Other specified disorders of breast; R92.8 Other abnormal and inconclusive findings on diagnostic imaging of breast | CPT/HCPCS: 19081; 76098-TC-FY; 88305-TC ==

== ENCOUNTER 2024-05-16 12:39 | Emergency (ER) | payer OTHER ==
[2024-05-16 12:44] VITALS: BP 166/97; PULSE 70; RESP 20; TEMP 98.2; BMI 43.2
[2024-05-16] MEDS ORDERED: SILVER SULFADIAZINE 1% TOP CREAM 50 GM JAR TP ONE (12:49)
[2024-05-16] MEDS: SILVER SULFADIAZINE 1% TOP CREAM 50 GM JAR TP ONE (12:51)
[2024-05-16] MEDS: DIPHTH,PERTUSS(ACELL),TET 0.5 ML DISP.SYRIN IM ONE (13:31)
[2024-05-16] MEDS ORDERED: DIPHTH,PERTUSS(ACELL),TET 0.5 ML DISP.SYRIN IM ONE (13:31)
[2024-05-17] MEDS ORDERED: SILVER SULFADIAZINE 1% TOP CREAM 400 GM JAR TP ONE (12:49)
== END 2024-05-16 13:53 | disposition home or self-care (01) ==
LOC: JERFT 12:39
PROC: 3E0234Z Introduction of Serum, Toxoid and Vaccine into Muscle, Percutaneous Approach (ICD-10-PCS; principal; 2024-05-16)
DX: T23.271A Burn of second degree of right wrist, initial encounter (principal); X10.2XXA Contact with fats and cooking oils, initial encounter; Z23 Encounter for immunization
CPT/HCPCS: 90715; 99284-25